=== PATIENT | female | born 1990 | race Caucasian/White ===

== ENCOUNTER 2018-01-18 14:37 | Emergency (ER) | payer MEDICAID ==
--- NOTE | 2018-01-18 14:57 | EDM.PDOC ---
ED HPI GENERAL MEDICAL PROBLEM - General Chief Complaint: Skin Complaint Stated Complaint: INFECTION Time Seen by Provider: 01/18/18 14:52 Source of Information: Reports: Patient History Limitations: Reports: No Limitations - History of Present Illness INITIAL COMMENTS - FREE TEXT/NARRATIVE: HISTORY AND PHYSICAL: []27-year-old female presenting with right breast pain and infection History of Present Illness: []Pain has been present infection for the last 2 weeks she rates her pain as a 10 on admission Review of Systems: As per history of present illness and below otherwise all systems reviewed and negative. Past medical history: As per history of present illness and as reviewed below otherwise noncontributory. Surgical history: As per history of present illness and as reviewed below otherwise noncontributory. Social history: No reported history of drug or alcohol abuse. Family history: As per history of present illness and as reviewed below otherwise noncontributory. Physical exam: Alert female answering questions appropriately in full sentences without any shortness of breath. She is nontoxic in appearance HEENT: Atraumatic, normocehpalic, pupils reactive, negative for conjunctival pallor or scleral icterus, mucous membranes moist, throat clear, neck supple, nontender, trachea midline. Lungs: Clear to auscultation, breath sounds equal bilaterally, chest non tender. Right breast has nipple ring in there is erythema surrounding the breast there is firmness and heat radiating from mid nipple to immediately 2 fingerbreadths Heart: S1S2, regular, negative for clicks, rubs, or JVD. Abdomen: Soft, nondistended, nontender. Negative for masses or hepatossplenmegaly. Negative for costovertebral tenderness. Pelvis: Stable nontender. Genitourinary: Deferred. Rectal: Deferred Extremities: Atraumatic, negative for cords or calf pain. Neurovascular unremarkable. Neuro: Awake, alert, oriented. Cranial nerves II through XII unremarkable. Cerebellum unremarkable. Motor and sensory unremarkable throughout. Exam nonfocal. Diagnostics: [] Therapeutics: []Rocephin 1 g IM hydrocodone Impression: []Mastitis versus cellulitis -abscess Plan: []Discharge home Take out the nipple ring Follow-up with your primary care provider Return to the emergency room should symptoms worsen fever medications not working Keflex 500 mg 3 times a day 7 days Moist heat to this area 3 times a day 10 minutes Definitive disposition and diagnosis as appropriate pending reevaluation and review of above. 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 ED EXAM, SKIN/RASH Exam: See Below (See dictation) Course - Vital Signs Last Recorded V/S: Last Vital Signs Temp 36.6 C 01/18/18 14:49 Pulse 94 01/18/18 14:49 Resp 18 01/18/18 14:49 BP 102/56 L 01/18/18 14:49 Pulse Ox 98 01/18/18 14:49 - Orders/Labs/Meds Orders: Active Orders 24 hr Category Date Time Status Communication Order [RC] STAT Care 01/18/18 14:57 Active Meds: Medications Discontinued Medications Generic Name Dose Route Start Last Admin Trade Name Joaquín PRN Reason Stop Dose Admin Hydrocodone Bitart/Acetaminophen 1 tab 01/18/18 15:05 01/18/18 15:13 [place] 325-10 Mg PO 01/18/18 15:06 1 tab ONETIME ONE Administration Ceftriaxone Sodium 1,000 mg/ 4 mls @ 4 mls/sec 01/18/18 15:06 01/18/18 15:14 Lidocaine HCl IM 01/18/18 15:07 4 mls/sec ONETIME ONE Administration Departure - Departure Time of Disposition: 14:59 Disposition: Home, Self-Care 01 Condition: Good Clinical Impression: Cellulitis Qualifiers: Site of cellulitis: other site Qualified Code(s): L03.818 - Cellulitis of other sites - Discharge Information Prescriptions: Cephalexin [Keflex] 500 mg PO Q8H #21 cap Instructions: Cellulitis, Adult Referrals: PCP,None [Primary Care Provider] - Forms: ED Department Discharge Additional Instructions: The following information is given to patients seen in the emergency department who are being discharged to home. This information is to outline your options for follow-up care. We provide all patients seen in our emergency department with a follow-up referral. The need for follow-up, as well as the timing and circumstances, are variable depending upon the specifics of your emergency department visit. If you don't have a primary care physician on staff, we will provide you with a referral. We always advise you to contact your personal physician following an emergency department visit to inform them of the circumstance of the visit and for follow-up with them and/or the need for any referrals to a consulting specialist. The emergency department will also refer you to a specialist when appropriate. This referral assures that you have the opportunity for followup care with a specialist. All of these measure are taken in an effort to provide you with optimal care, which includes your followup. Under all circumstances we always encourage you to contact your private physician who remains a resource for coordinating your care. When calling for followup care, please make the office aware that this follow-up is from your recent emergency room visit. If for any reason you are refused follow-up, please contact the [facility] emergency department at and asked to speak to the emergency department charge nurse. Discharge home Take out the nipple ring Follow-up with your primary care provider Return to the emergency room should symptoms worsen fever medications not working Keflex 500 mg 3 times a day 7 days Moist heat to this area 3 times a day 10 minutes - My Orders Last 24 Hours: My Active Orders 01/18/18 14:57 Communication Order [RC] STAT - Assessment/Plan Last 24 Hours: My Active Orders 01/18/18 14:57 Communication Order [RC] STAT
[2018-01-18] MEDS ORDERED: Acetaminophen/HYDROcodone 325-10 MG Tab PO ONE (15:05)
[2018-01-18] MEDS ORDERED: cefTRIAXone 1,000 MG in Lidocaine 1% 4 ML IM ONE (15:06)
[2018-01-18 17:46] VITALS: BP 104/69
== END 2018-01-18 15:45 | disposition home or self-care (01) ==
LOC: MW.ED 14:37
DX: N61.0 Mastitis without abscess (principal); Z88.1 Allergy status to other antibiotic agents; Z88.0 Allergy status to penicillin
CPT/HCPCS: 96372; 99283; A9270; J0696; J2001

== ENCOUNTER 2018-01-19 21:44 | Observation (INO) | payer MEDICAID ==
--- NOTE | 2018-01-19 22:26 | EDM.PDOC ---
ED HPI GENERAL MEDICAL PROBLEM - General Chief Complaint: Skin Complaint Stated Complaint: CELLULITIS IN BREAST Time Seen by Provider: 01/19/18 21:57 Source of Information: Reports: Patient - History of Present Illness INITIAL COMMENTS - FREE TEXT/NARRATIVE: HISTORY AND PHYSICAL: History of present illness: 27-year-old female presenting the emergency department with chief complaint of right breast pain and swelling. Patient was seen here on 01/18 with similar complaint and discharged with a prescription of Keflex. She returns today stating that the pain has increased as well as the swelling and redness. She does also report associated fever maximum temp 101 today as well as nausea without vomiting. Patient reported that she had a nipple piercing in the breast and initially when she took the piercing out before being seen on 01/18 there was some drainage from the right breast. Currently states that her pain is 8 out of 10 and primary located to the right breast. She is allergic to amoxicillin and penicillins. Currently denies any chest pain, palpitations, shortness of breath, syncopal episodes, or focal neurologic deficits. Otherwise patient takes no other medications on a daily basis. Review of systems: As per history of present illness and below otherwise all systems reviewed and negative. Past medical history: As per history of present illness and as reviewed below otherwise noncontributory. Surgical history: As per history of present illness and as reviewed below otherwise noncontributory. Social history: No reported history of drug or alcohol abuse. Family history: As per history of present illness and as reviewed below otherwise noncontributory. Physical exam: HEENT: Atraumatic, normocephalic, pupils reactive, negative for conjunctival pallor or scleral icterus, mucous membranes moist, throat clear, neck supple, nontender, trachea midline. Lungs: Clear to auscultation, breath sounds equal bilaterally, chest nontender. Heart: S1S2, regular, negative for clicks, rubs, or JVD. Abdomen: Soft, nondistended, nontender. Negative for masses or hepatosplenomegaly. Negative for costovertebral tenderness. Pelvis: Stable nontender. Genitourinary: Deferred. Rectal: Deferred. Extremities: Atraumatic, negative for cords or calf pain. Neurovascular unremarkable. Neuro: Awake, alert, oriented. Cranial nerves II through XII unremarkable. Cerebellum unremarkable. Motor and sensory unremarkable throughout. Exam nonfocal. Breast exam: There is significant swelling, induration, to the right breast encompassing the entire breast and nipple. I was unable to exude any material from the breast. Area erythema was demarcated with a surgical pen and dated with time Diagnostics: CBC, CMP, lactate, blood culture 2 Therapeutics: 2 L normal saline IV, 1 g vancomycin IV 1, 1 mg Dilaudid IV 2, 50 mg Benadryl IV 1 Impression: Breast abscess with cellulitis Sepsis secondary to cellulitis Plan: CBC revealed a white count of 19k and the patient was initially found to be tachycardic with an elevated lactate of 2.2. Blood cultures 2 were obtained and patient was started on vancomycin 1 g IV. She was also given 2 L of normal saline while in the emergency department and a total of 2 mg of Dilaudid IV for pain. Impression, sepsis secondary to breast abscess/cellulitis of right breast. Patient did have some erythema as well as itching when vancomycin was initially started. I did give her 50 mg of IV Benadryl which relieved her symptoms. After vancomycin given reinspection showed improving erythema of the right breast. Dr. Moore, hospitalist, was advised of the patient and he accepted her for admission for observation cellulitis with abscess right breast. 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: Musculoskeletal History: Reports: None Neurological History: Reports: None Psychiatric History: Reports: Bipolar Endocrine/Metabolic History: Reports: None Hematologic History: Reports: None Oncologic (Cancer) History: Reports: None Dermatologic History: Reports: None - Infectious Disease History Infectious Disease History: Reports: None - Past Surgical History Head Surgeries/Procedures: Reports: None HEENT Surgical History: Reports: Tonsillectomy Social & Family History - Family History Family Medical History: Noncontributory - Tobacco Use Smoking Status *Q: Current Every Day Smoker Years of Tobacco use: 10 Packs/Tins Daily: 0.5 - Caffeine Use Caffeine Use: Reports: Coffee - Recreational Drug Use Recreational Drug Use: No ED ROS GENERAL - Review of Systems Review Of Systems: ROS reveals no pertinent complaints other than HPI. ED EXAM, SKIN/RASH Exam: See Below Course - Vital Signs Last Recorded V/S: Last Vital Signs Temp 99 F 01/20/18 00:16 Pulse 74 01/20/18 00:16 Resp 18 01/19/18 22:01 BP 117/74 01/20/18 00:16 Pulse Ox 100 01/20/18 00:16 - Orders/Labs/Meds Orders: Active Orders 24 hr Category Date Time Status CULTURE BLOOD [BC] Stat Lab 01/19/18 22:40 Received CULTURE BLOOD [BC] Stat Lab 01/19/18 22:51 Received Sodium Chloride 0.9% [Normal Saline] 1,000 ml Med 01/20/18 00:16 Active IV STAT Blood Culture x2 Reflex Set [OM.PC] Stat Oth 01/19/18 22:32 Ordered Medication Orders Sodium Chloride (Normal Saline) 1,000 mls @ 999 mls/hr IV STAT ONE Stop: 01/20/18 01:16 Last Admin: 01/20/18 00:23 Dose: 999 mls/hr Labs: Laboratory Tests 01/19/18 01/19/18 01/19/18 Range/Units 22:40 22:40 22:40 WBC 19.21 H (4.0-11.0) K/uL RBC 4.48 (4.30-5.90) M/uL Hgb 14.5 (12.0-16.0) g/dL Hct 41.7 (36.0-46.0) % MCV 93.1 (80.0-98.0) fL MCH 32.4 H (27.0-32.0) pg MCHC 34.8 (31.0-37.0) g/dL RDW Std Deviation 41.8 (28.0-62.0) fl RDW Coeff of Millicent 12 (11.0-15.0) % Plt Count 289 (150-400) K/uL MPV 10.20 (7.40-12.00) fL Neut % (Auto) 86.6 H (48.0-80.0) % Lymph % (Auto) 8.3 L (16.0-40.0) % Stephens % (Auto) 4.9 (0.0-15.0) % Eos % (Auto) 0.1 (0.0-7.0) % Baso % (Auto) 0.1 (0.0-1.5) % Neut # (Auto) 16.6 H (1.4-5.7) K/uL Lymph # (Auto) 1.6 (0.6-2.4) K/uL Stephens # (Auto) 1.0 H (0.0-0.8) K/uL Eos # (Auto) 0.0 (0.0-0.7) K/uL Baso # (Auto) 0.0 (0.0-0.1) K/uL Nucleated RBC % 0.0 /100WBC Nucleated RBCs # 0 K/uL Lactate 2.2 H (0.20-2.00) mmol/L Sodium 134 L (136-145) mmol/L Potassium 4.2 (3.5-5.1) mmol/L Chloride 96 L (98-107) mmol/L Carbon Dioxide 26.6 (21.0-32.0) mmol/L BUN 12 (7.0-18.0) mg/dL Creatinine 1.0 (0.6-1.0) mg/dL Est Cr Clr Drug Dosing 76.04 mL/min Estimated GFR (MDRD) > 60.0 ml/min Glucose 115 H (74-106) mg/dL Calcium 9.6 (8.5-10.1) mg/dL Total Bilirubin 0.5 (0.2-1.0) mg/dL AST 13 L (15-37) IU/L ALT 17 (14-63) IU/L Alkaline Phosphatase 98 (46-116) U/L Total Protein 9.5 H (6.4-8.2) g/dL Albumin 4.5 (3.4-5.0) g/dL Globulin 5.0 H (2.0-3.5) g/dL Albumin/Globulin Ratio 0.9 L (1.3-2.8) Meds: Medications Generic Name Dose Route Start Last Admin Trade Name Freq PRN Reason Stop Dose Admin Sodium Chloride 1,000 mls @ 999 mls/hr 01/20/18 00:16 01/20/18 00:23 Normal Saline IV 01/20/18 01:16 999 mls/hr STAT ONE Administration Discontinued Medications Generic Name Dose Route Start Last Admin Trade Name Joaquín PRN Reason Stop Dose Admin Diphenhydramine HCl 50 mg 01/19/18 23:48 01/19/18 23:52 Benadryl IVPUSH 01/19/18 23:49 50 mg ONETIME ONE Administration Hydromorphone HCl 1 mg 01/19/18 22:34 01/19/18 22:52 Dilaudid IM 01/19/18 22:35 Not Given ONETIME ONE Hydromorphone HCl 0.5 mg 01/19/18 22:49 01/19/18 22:52 Dilaudid IVPUSH 01/19/18 22:50 Not Given ONETIME ONE Hydromorphone HCl 1 mg 01/19/18 22:51 01/19/18 22:57 Dilaudid IVPUSH 01/19/18 22:52 1 mg ONETIME ONE Administration Hydromorphone HCl 1 mg 01/20/18 00:15 01/20/18 00:27 Dilaudid IVPUSH 01/20/18 00:16 Not Given ONETIME ONE Hydromorphone HCl 1 mg 01/20/18 00:20 01/20/18 00:26 Dilaudid IVPUSH 01/20/18 00:21 1 mg ONETIME ONE Administration Sodium Chloride 1,000 mls @ 999 mls/hr 01/19/18 22:34 01/19/18 22:57 Normal Saline IV 01/19/18 23:34 999 mls/hr STAT ONE Administration Vancomycin HCl 1 gm/ Sodium 250 mls @ 250 mls/hr 01/19/18 22:58 01/19/18 23: 06 Chloride IV 01/19/18 23:57 250 mls/hr ONETIME ONE Administration Departure - Departure Time of Disposition: 00:41 Disposition: Admitted As Inpatient 66 Condition: Fair Clinical Impression: Sepsis due to cellulitis, Breast abscess of female - Discharge Information Referrals: PCP,None [Primary Care Provider] - Forms: ED Department Discharge - My Orders Last 24 Hours: My Active Orders 01/19/18 22:32 Blood Culture x2 Reflex Set [OM.PC] Stat 01/19/18 22:40 CULTURE BLOOD [BC] Stat 01/19/18 22:51 CULTURE BLOOD [BC] Stat 01/20/18 00:16 Sodium Chloride 0.9% [Normal Saline] 1,000 ml IV STAT - Assessment/Plan Last 24 Hours: My Active Orders 01/19/18 22:32 Blood Culture x2 Reflex Set [OM.PC] Stat 01/19/18 22:40 CULTURE BLOOD [BC] Stat 01/19/18 22:51 CULTURE BLOOD [BC] Stat 01/20/18 00:16 Sodium Chloride 0.9% [Normal Saline] 1,000 ml IV STAT
[2018-01-19] MEDS ORDERED: Sodium Chloride 0.9% 1,000 ML IV ONE (22:34)
[2018-01-19] MEDS ORDERED: HYDROmorphone 2 MG/ML SDV IM ONE (22:34)
[2018-01-19] MEDS ORDERED: HYDROmorphone 1 MG/ML Syringe IVPUSH ONE ×2 (22:49→22:51)
[2018-01-19 23:20] LABS: CHLORIDE,CL 96 mmol/L (98-107); SODIUM,NA 134 mmol/L (136-145)
[2018-01-19] MEDS ORDERED: diphenhydrAMINE 50 MG/ML SDV IVPUSH ONE (23:48)
[2018-01-20] MEDS ORDERED: HYDROmorphone 2 MG/ML Syringe IVPUSH ONE (00:15)
[2018-01-20] MEDS ORDERED: Sodium Chloride 0.9% 1,000 ML IV ONE (00:16)
[2018-01-20] MEDS ORDERED: HYDROmorphone 1 MG/ML Syringe IVPUSH ONE (00:20)
[2018-01-20] MEDS ORDERED: HYDROmorphone 4 MG/ML Syringe IVPUSH PRN (01:21)
[2018-01-20] MEDS ORDERED: Acetaminophen 325 MG Tab PO PRN (01:22)
[2018-01-20] MEDS: Sodium Chloride 0.9% 1,000 ML IV SCH ×3 (01:31→16:37)
[2018-01-20] MEDS: HYDROmorphone 1 MG/ML Syringe IV PRN ×7 (01:45→23:24)
[2018-01-20 05:13] LABS: CHLORIDE,CL 102 mmol/L (98-107); SODIUM,NA 136 mmol/L (136-145)
[2018-01-20] MEDS ORDERED: Ondansetron 4 MG/2 ML SDV IVPUSH PRN (08:07)
--- NOTE | 2018-01-20 08:21 | PCM.HP ---
Addendum entered and electronically signed by Jennifer Maurice NP 01/20/18 10:27 : 3.8 x 3 cm abscess noted on ultrasound to right upper inner breast. Dr Mckeon aware and will speak to patient regarding drainage options. Original Note: H&P History of Present Illness - General Date of Service: 01/20/18 Admit Problem/Dx: Admission Diagnosis/Problem Admission Diagnosis/Problem Sepsis, cellulitis R breast Source of Information: Patient History Limitations: Reports: No Limitations - History of Present Illness Initial Comments - Free Text/Narative: This 27 year old female with no significant pmh presented to the ED last night with complaints of warm, red painful R breast with associated nausea and fevers. She reports approximately 1 week ago she noticed some redness on her right breast, she removed her nipple ring and cleaned it and noticed some drainage from the hole when she did this. She replaced the ring, but with a smaller size, but the redness and pain continued to worsen. She has since removed the piercing from R nipple. She came to the ED on 01/18 and was treated with IM Rocephin and sent home with Keflex, she reports it only worsened and became more reddened, hard and painful. She had a temp at home of 101. She came back to the ED last night for further evaluation. She reports having her nipple pierced in June and everything was good with it until now. She reports she cleans is regularly and has never had anything like this before. She denies injecting anything into her breast, no injury or trauma to he right breast. She denies abdominal pain, shortness of breath or dysuria. She reports tobacco use, 4 cigarettes a day, rare alcohol use. She denies recreational drug use. She denies any surgeries other than tonsillectomy as a young child. In the ED significant leukocytosis noted, 19,210, Lactate 2.2 BMP otherwise WNL. She was noted to be tachycardic and febrile in the ED as well. She was treated with IVF bolus and Vancomycin. She was admitted observation for R breast cellulitis with sepsis and possible abscess. right breast Pain Score (Numeric/FACES): 7 - Related Data Allergies/Adverse Reactions: Allergies Allergy/AdvReac Type Severity Reaction Status Date / Time amoxicillin Allergy Other Verified 01/19/18 22:01 Penicillins Allergy Other Verified 01/19/18 22:01 Home Medications: Home Meds Cephalexin [Keflex] 500 mg PO Q8H #21 cap 01/18/18 [Rx] Past Medical History HEENT History: Reports: None Cardiovascular History: Reports: Other (See Below). Denies: Afib, Hypertension , [place] Other Cardiovascular History: prolonged QT interval Respiratory History: Reports: None. Denies: Asthma, COPD Gastrointestinal History: Reports: None. Denies: GERD, GI Bleed Genitourinary History: Reports: None [employer]ER History: Reports: Musculoskeletal History: Reports: None Neurological History: Reports: None. Denies: CVA, TIA Psychiatric History: Reports: Bipolar Endocrine/Metabolic History: Reports: None. Denies: Diabetes, Type II Hematologic History: Reports: None Oncologic (Cancer) History: Reports: None Dermatologic History: Reports: None - Infectious Disease History Infectious Disease History: Reports: None - Past Surgical History Head Surgeries/Procedures: Reports: None HEENT Surgical History: Reports: Tonsillectomy Social & Family History - Family History Family Medical History: Noncontributory - Tobacco Use Smoking Status *Q: Current Every Day Smoker Years of Tobacco use: 10 Packs/Tins Daily: 0.2 Used Tobacco, but Quit: No Second Hand Smoke Exposure: Yes - Caffeine Use Caffeine Use: Reports: Coffee, Energy Drinks - Alcohol Use Days Per Week of Alcohol Use: 1 Number of Drinks Per Day: 1 Total Drinks Per Week: 1 Alcohol Use Frequency: Rarely, Socially - Recreational Drug Use Recreational Drug Use: No Drug Use in Last 12 Months: No - Living Situation & Occupation Living situation: Reports: Single Occupation: Employed H&P Review of Systems - Review of Systems: Review Of Systems: See Below General: Reports: Fever, Chills, Malaise HEENT: Reports: No Symptoms. Denies: Hearing Changes, Sinus Congestion, Sore Throat, Visual Changes Pulmonary: Reports: No Symptoms. Denies: Shortness of Breath, Cough, Sputum Cardiovascular: Reports: No Symptoms. Denies: Chest Pain, Edema Gastrointestinal: Reports: Nausea. Denies: Abdominal Pain, Black Stool, Bloody Stool, Vomiting Genitourinary: Reports: No Symptoms. Denies: Dysuria, Frequency, Burning, Pain Musculoskeletal: Reports: No Symptoms Skin: Reports: Erythema (R breast) Neurological: Reports: No Symptoms Hematologic/Lymphatic: Reports: No Symptoms Immunologic: Reports: No Symptoms Exam - Exam Exam: See Below - Vital Signs Vital Signs: Last Vital Signs Temp 99.2 F 01/20/18 07:44 Pulse 67 01/20/18 07:44 Resp 14 01/20/18 07:44 BP 91/49 L 01/20/18 07:44 Pulse Ox 98 01/20/18 04:00 Weight: 61.825 kg - Exam General: Alert, Oriented, Cooperative HEENT: Conjunctiva Clear, Nares Patent, Posterior Pharynx Clear Neck: Supple, Trachea Midline. No: Lymphadenopathy Lungs: Clear to Auscultation, Normal Respiratory Effort Cardiovascular: Regular Rate, Regular Rhythm, Normal S1, Normal S2. No: Systolic Murmur GI/Abdominal Exam: Normal Bowel Sounds, Soft, Non-Tender Extremities: Normal Inspection, Normal Range of Motion, Non-Tender Skin: Other (Erythema, induration noted to 3 oclock position of R breast. No skin dimpling noted. Induration is approximately 2-3 in and is from 12 o'clock position to 6 o'clock positin and exquistely tender to palpation. No fluctuance noted. Small area noted just medially to R nipple, with possible purulence just beneath skin layer. No obviously drainage noted. No lymphadenopathy to cervical or axilla. ) Neuro Extensive - Mental Status: Alert, Oriented x3 Neuro Extensive - Motor, Sensory, Reflexes: CN II-XII Intact Psychiatric: Alert, Normal Affect, Normal Mood - Patient Data Lab Results Last 24 hrs: Laboratory Results - last 24 hr 01/19/18 01/19/18 01/19/18 Range/Units 22:40 22:40 22:40 WBC 19.21 H (4.0-11.0) K/uL RBC 4.48 (4.30-5.90) M/uL Hgb 14.5 (12.0-16.0) g/dL Hct 41.7 (36.0-46.0) % MCV 93.1 (80.0-98.0) fL MCH 32.4 H (27.0-32.0) pg MCHC 34.8 (31.0-37.0) g/dL RDW Std Deviation 41.8 (28.0-62.0) fl RDW Coeff of Millicent 12 (11.0-15.0) % Plt Count 289 (150-400) K/uL MPV 10.20 (7.40-12.00) fL Neut % (Auto) 86.6 H (48.0-80.0) % Lymph % (Auto) 8.3 L (16.0-40.0) % [place] % (Auto) 4.9 (0.0-15.0) % Eos % (Auto) 0.1 (0.0-7.0) % Baso % (Auto) 0.1 (0.0-1.5) % Neut # (Auto) 16.6 H (1.4-5.7) K/uL Lymph # (Auto) 1.6 (0.6-2.4) K/uL [place] # (Auto) 1.0 H (0.0-0.8) K/uL Eos # (Auto) 0.0 (0.0-0.7) K/uL Baso # (Auto) 0.0 (0.0-0.1) K/uL Nucleated RBC % 0.0 /100WBC Nucleated RBCs # 0 K/uL Lactate 2.2 H (0.20-2.00) mmol/L Sodium 134 L (136-145) mmol/L Potassium 4.2 (3.5-5.1) mmol/L Chloride 96 L (98-107) mmol/L Carbon Dioxide 26.6 (21.0-32.0) mmol/L BUN 12 (7.0-18.0) mg/dL Creatinine 1.0 (0.6-1.0) mg/dL Est Cr Clr Drug Dosing 76.04 mL/min Estimated GFR (MDRD) > 60.0 ml/min Glucose 115 H (74-106) mg/dL Calcium 9.6 (8.5-10.1) mg/dL Total Bilirubin 0.5 (0.2-1.0) mg/dL AST 13 L (15-37) IU/L ALT 17 (14-63) IU/L Alkaline Phosphatase 98 (46-116) U/L Total Protein 9.5 H (6.4-8.2) g/dL Albumin 4.5 (3.4-5.0) g/dL Globulin 5.0 H (2.0-3.5) g/dL Albumin/Globulin Ratio 0.9 L (1.3-2.8) 01/20/18 01/20/18 01/20/18 Range/Units 04:49 04:49 04:49 WBC 12.71 H (4.0-11.0) K/uL RBC 3.96 L (4.30-5.90) M/uL Hgb 12.7 (12.0-16.0) g/dL Hct 37.2 (36.0-46.0) % MCV 93.9 (80.0-98.0) fL MCH 32.1 H (27.0-32.0) pg MCHC 34.1 (31.0-37.0) g/dL RDW Std Deviation 42.4 (28.0-62.0) fl RDW Coeff of Millicent 12 (11.0-15.0) % Plt Count 253 (150-400) K/uL MPV 10.10 (7.40-12.00) fL Neut % (Auto) 78.8 (48.0-80.0) % Lymph % (Auto) 14.6 L (16.0-40.0) % [place] % (Auto) 5.7 (0.0-15.0) % Eos % (Auto) 0.8 (0.0-7.0) % Baso % (Auto) 0.1 (0.0-1.5) % Neut # (Auto) 10.0 H (1.4-5.7) K/uL Lymph # (Auto) 1.9 (0.6-2.4) K/uL [place] # (Auto) 0.7 (0.0-0.8) K/uL Eos # (Auto) 0.1 (0.0-0.7) K/uL Baso # (Auto) 0.0 (0.0-0.1) K/uL Nucleated RBC % 0.0 /100WBC Nucleated RBCs # 0 K/uL Lactate 0.5 (0.20-2.00) mmol/L Sodium 136 (136-145) mmol/L Potassium 3.4 L (3.5-5.1) mmol/L Chloride 102 (98-107) mmol/L Carbon Dioxide 27.6 (21.0-32.0) mmol/L BUN 8 (7.0-18.0) mg/dL Creatinine 0.8 (0.6-1.0) mg/dL Est Cr Clr Drug Dosing 98.88 mL/min Estimated GFR (MDRD) > 60.0 ml/min Glucose 92 (74-106) mg/dL Calcium 8.3 L (8.5-10.1) mg/dL Total Bilirubin (0.2-1.0) mg/dL AST (15-37) IU/L ALT (14-63) IU/L Alkaline Phosphatase (46-116) U/L Total Protein (6.4-8.2) g/dL Albumin (3.4-5.0) g/dL Globulin (2.0-3.5) g/dL Albumin/Globulin Ratio (1.3-2.8) Result Diagrams: 01/20/18 04:49 01/20/18 04:49 *Q Meaningful Use (ADM) - VTE Risk Assess *Q Each Risk Factor Represents 1 Point: None Total Score 1 Point Risk Factors: 0 Each Risk Factor Represents 2 Points: None Total Score 2 Point Risk Factors: 0 Each Risk Factor Represents 3 Points: None Total Score 3 Point Risk Factors: 0 Each Risk Factor Represents 5 Points: None Total Score 5 Point Risk Factors: 0 Venous Thromboembolism Risk Factor Score *Q: 0 - Problem List (1) Sepsis due to cellulitis SNOMED Code(s): 89888511 ICD Code: L03.90 - CELLULITIS, UNSPECIFIED; A41.9 - SEPSIS, UNSPECIFIED ORGANISM Status: Acute Current Visit: Yes (2) Cellulitis SNOMED Code(s): 339253136 ICD Code: L03.90 - CELLULITIS, UNSPECIFIED Status: Acute Current Visit: No Qualifiers: Site of cellulitis: other site Qualified Code(s): L03.818 - Cellulitis of other sites (3) Breast abscess of female SNOMED Code(s): 09526856, 831346624 ICD Code: N61.1 - ABSCESS OF THE BREAST AND NIPPLE Status: Suspected Current Visit: Yes Problem List Initiated/Reviewed/Updated: Yes Orders Last 24hrs: Active Orders 24 hr Category Date Time Status Admission Status [Patient Status] [ADT] Routine ADT 01/20/18 01:24 Active Notify Provider Consults [RC] ASDIRECTED Care 01/20/18 08:02 Ordered Oxygen Therapy [RC] PRN Care 01/20/18 08:08 Ordered Up ad Ashley [RC] ASDIRECTED Care 01/20/18 08:07 Ordered VTE/DVT Education [RC] PER UNIT ROUTINE Care 01/20/18 08:08 Ordered Vital Signs [RC] Q4H Care 01/20/18 08:08 Ordered Consult to Physician [CONS] Routine Cons 01/20/18 08:00 Ordered Regular Diet [DIET] Diet 01/20/18 Breakfast Active Breast Complete Rt [US] Urgent Exams 01/20/18 07:57 Ordered BASIC METABOLIC PANEL,BMP [CHEM] AM Lab 01/21/18 05:11 Ordered BASIC METABOLIC PANEL,BMP [CHEM] AM Lab 01/22/18 05:11 Ordered BASIC METABOLIC PANEL,BMP [CHEM] AM Lab 01/23/18 05:11 Ordered CBC WITH AUTO DIFF [HEME] AM Lab 01/21/18 05:11 Ordered CBC WITH AUTO DIFF [HEME] AM Lab 01/22/18 05:11 Ordered CBC WITH AUTO DIFF [HEME] AM Lab 01/23/18 05:11 Ordered CULTURE BLOOD [BC] Stat Lab 01/19/18 22:40 Received CULTURE BLOOD [BC] Stat Lab 01/19/18 22:51 Received VANCOMYCIN TROUGH [CHEM] Timed Lab 01/21/18 06:00 Ordered Acetaminophen [Tylenol] Med 01/20/18 01:22 Active 650 mg PO Q6H PRN HYDROmorphone [Dilaudid] Med 01/20/18 01:45 Active 1 mg IV Q3H PRN Ondansetron [Zofran] Med 01/20/18 08:07 Ordered 4 mg IVPUSH Q4H PRN Sodium Chloride 0.9% [Normal Saline] 1,000 ml Med 01/20/18 01:30 Active IV ASDIRECTED Vancomycin Pharmacy to Dose [Pharmacy to Dose - Med 01/20/18 01:30 Active Vancomycin] 1 dose .XX ASDIRECTED Vancomycin [Vancocin] 1 gm Med 01/20/18 07:00 Active Sodium Chloride 0.9% [Normal Saline] 250 ml IV Q8H diphenhydrAMINE [Benadryl] Med 01/20/18 02:37 Active 50 mg IVPUSH Q6H PRN oxyCODONE Med 01/20/18 08:05 Ordered 5 mg PO Q4H PRN Blood Culture x2 Reflex Set [OM.PC] Stat Oth 07/01/18 22:32 Ordered Resuscitation Status Routine Resus Stat 01/20/18 08:07 Ordered Medication Orders Acetaminophen (Tylenol) 650 mg PO Q6H PRN PRN Reason: Pain Diphenhydramine HCl (Benadryl) 50 mg IVPUSH Q6H PRN PRN Reason: Itching Hydromorphone HCl (Dilaudid) 1 mg IV Q3H PRN PRN Reason: Pain Last Admin: 01/20/18 07:52 Dose: 1 mg Admin: 01/20/18 04:53 Dose: 1 mg Admin: 01/20/18 01:45 Dose: 1 mg Sodium Chloride (Normal Saline) 1,000 mls @ 125 mls/hr IV ASDIRECTED [facility] Last Admin: 01/20/18 01:31 Dose: 125 mls/hr Vancomycin HCl 1 gm/ Sodium (Chloride) 250 mls @ 166 mls/hr IV Q8H [facility] Last Admin: 01/20/18 06:12 Dose: 166 mls/hr Ondansetron HCl (Zofran) 4 mg IVPUSH Q4H PRN PRN Reason: Nausea Oxycodone HCl (Oxycodone) 5 mg PO Q4H PRN PRN Reason: Pain Vancomycin HCl (Pharmacy To Dose - Vancomycin) 1 dose .XX ASDIRECTED [facility] Assessment/Plan Comment:: This 27 year old female admitted with sepsis secondary to R breast cellulitis and possible abscess. 1. Sepsis: Tachycardia improved with IVF resuscitation. Lactate normalized. Will continue to monitor. BC pending. Continue IVFs, NS 125 for now. 2. R breast cellulitis with possible abscess: Will obtain US this morning to evaluate for abscess. Consult Dr Mckeon, general surgery, to evaluate for possible I&D. Continue Vancomycin. Leukcytosis improved to 12,000 this morning. Temps 99.0. Dilaudid and Oxycodone for pain PRN. VTE prophylaxis: SCDs and ambulation Dispo: 1-2 days pending improvement and surgical consultation.
[2018-01-20] MEDS: oxyCODONE 5 MG Tab PO PRN ×3 (08:49→21:07)
--- NOTE | 2018-01-20 09:28 | US ---
EXAMINATION: Right breast ultrasound HISTORY: Cellulitis COMPARISON: None TECHNIQUE: Grayscale and color Doppler imaging obtained of the right breast. FINDINGS: Within the upper inner right breast there is a 3.8 x 3 cm hypoechoic irregular collection n oted. Internal contents are heterogeneous. There is increased color Doppler flow along the periphery without definitive internal color Doppler flow. This is most consistent with an abscess. IMPRESSION: 1. Probable 3.8 x 3 cm right breast abscess measuring 3.8 x 3 cm.
--- NOTE | 2018-01-20 12:04 | PCM.CONS ---
H&P History of Present Illness - General Date of Service: 01/20/18 Admit Problem/Dx: Admission Diagnosis/Problem Admission Diagnosis/Problem Sepsis, cellulitis R breast Source of Information: Patient History Limitations: Reports: No Limitations - History of Present Illness Initial Comments - Free Text/Narative: Patient is a 27 year old female who presented with right breast pain and cellulitis. She was seen in the ER and given a shot of rocephin and discharged home on oral antibiotics. Her pain, erythema and swelling worsened so she represented to the ED. She was found to have a WBC of 19K. She was admitted to the medicine service and started on IV vancomycin. Her WBC this morning is 12K. She has a small area of fluctuance at the medial border of the right areola. An US was done that showed 3 x 3.8 cm abscess in the right upper inner quadrant under this area. She has a nipple ring that was placed in June and smokes. right breast Pain Score (Numeric/FACES): 7 - Related Data Allergies/Adverse Reactions: Allergies Allergy/AdvReac Type Severity Reaction Status Date / Time amoxicillin Allergy Other Verified 01/19/18 22:01 Penicillins Allergy Other Verified 01/19/18 22:01 Home Medications: Home Meds Cephalexin [Keflex] 500 mg PO Q8H #21 cap 01/18/18 [Rx] Past Medical History HEENT History: Reports: None Cardiovascular History: Reports: Other (See Below). Denies: Afib, Hypertension , [place] Other Cardiovascular History: prolonged QT interval Respiratory History: Reports: None. Denies: Asthma, COPD Gastrointestinal History: Reports: None. Denies: GERD, GI Bleed Genitourinary History: Reports: None [employer] History: Reports: Musculoskeletal History: Reports: None Neurological History: Reports: None. Denies: CVA, TIA Psychiatric History: Reports: Bipolar Endocrine/Metabolic History: Reports: None. Denies: Diabetes, Type II Hematologic History: Reports: None Oncologic (Cancer) History: Reports: None Dermatologic History: Reports: None - Infectious Disease History Infectious Disease History: Reports: None - Past Surgical History Head Surgeries/Procedures: Reports: None HEENT Surgical History: Reports: Tonsillectomy Social & Family History - Family History Family Medical History: Noncontributory - Tobacco Use Smoking Status *Q: Current Every Day Smoker Years of Tobacco use: 10 Packs/Tins Daily: 0.2 Used Tobacco, but Quit: No Second Hand Smoke Exposure: Yes - Caffeine Use Caffeine Use: Reports: Coffee, Energy Drinks - Alcohol Use Days Per Week of Alcohol Use: 1 Number of Drinks Per Day: 1 Total Drinks Per Week: 1 - Recreational Drug Use Recreational Drug Use: No Drug Use in Last 12 Months: No - Living Situation & Occupation Living situation: Reports: Single Occupation: Employed H&P Review of Systems - Review of Systems: Review Of Systems: ROS reveals no pertinent complaints other than HPI. Exam - Exam Exam: See Below - Vital Signs Vital Signs: Last Vital Signs Temp 36.3 C 01/20/18 11:42 Pulse 59 L 01/20/18 11:42 Resp 20 01/20/18 11:42 BP 95/55 L 01/20/18 11:42 Pulse Ox 99 01/20/18 11:42 Weight: 61.825 kg - Exam General: Alert, Oriented HEENT: Conjunctiva Clear, Mucosa Moist & [place], Posterior Pharynx Clear Lungs: Normal Respiratory Effort Cardiovascular: Regular Rate Back Exam: Normal Inspection Extremities: Normal Inspection Skin: Warm, Dry, Intact Skin Alteration Location (Drawings Not To Scale): 1 - Erythematous, tender, swollen right breast, with small area of fluctuance at the 3 oclock position on the areolar border Neuro Extensive - Mental Status: Alert, Oriented x3 - Patient Data Lab Results Last 24 hrs: Laboratory Results - last 24 hr 01/19/18 01/19/18 01/19/18 Range/Units 22:40 22:40 22:40 WBC 19.21 H (4.0-11.0) K/uL RBC 4.48 (4.30-5.90) M/uL Hgb 14.5 (12.0-16.0) g/dL Hct 41.7 (36.0-46.0) % MCV 93.1 (80.0-98.0) fL MCH 32.4 H (27.0-32.0) pg MCHC 34.8 (31.0-37.0) g/dL RDW Std Deviation 41.8 (28.0-62.0) fl RDW Coeff of Millicent 12 (11.0-15.0) % Plt Count 289 (150-400) K/uL MPV 10.20 (7.40-12.00) fL Neut % (Auto) 86.6 H (48.0-80.0) % Lymph % (Auto) 8.3 L (16.0-40.0) % [place] % (Auto) 4.9 (0.0-15.0) % Eos % (Auto) 0.1 (0.0-7.0) % Baso % (Auto) 0.1 (0.0-1.5) % Neut # (Auto) 16.6 H (1.4-5.7) K/uL Lymph # (Auto) 1.6 (0.6-2.4) K/uL [place] # (Auto) 1.0 H (0.0-0.8) K/uL Eos # (Auto) 0.0 (0.0-0.7) K/uL Baso # (Auto) 0.0 (0.0-0.1) K/uL Nucleated RBC % 0.0 /100WBC Nucleated RBCs # 0 K/uL Lactate 2.2 H (0.20-2.00) mmol/L Sodium 134 L (136-145) mmol/L Potassium 4.2 (3.5-5.1) mmol/L Chloride 96 L (98-107) mmol/L Carbon Dioxide 26.6 (21.0-32.0) mmol/L BUN 12 (7.0-18.0) mg/dL Creatinine 1.0 (0.6-1.0) mg/dL Est Cr Clr Drug Dosing 76.04 mL/min Estimated GFR (MDRD) > 60.0 ml/min Glucose 115 H (74-106) mg/dL Calcium 9.6 (8.5-10.1) mg/dL Total Bilirubin 0.5 (0.2-1.0) mg/dL AST 13 L (15-37) IU/L ALT 17 (14-63) IU/L Alkaline Phosphatase 98 (46-116) U/L Total Protein 9.5 H (6.4-8.2) g/dL Albumin 4.5 (3.4-5.0) g/dL Globulin 5.0 H (2.0-3.5) g/dL Albumin/Globulin Ratio 0.9 L (1.3-2.8) 01/20/18 01/20/18 01/20/18 Range/Units 04:49 04:49 04:49 WBC 12.71 H (4.0-11.0) K/uL RBC 3.96 L (4.30-5.90) M/uL Hgb 12.7 (12.0-16.0) g/dL Hct 37.2 (36.0-46.0) % MCV 93.9 (80.0-98.0) fL MCH 32.1 H (27.0-32.0) pg MCHC 34.1 (31.0-37.0) g/dL RDW Std Deviation 42.4 (28.0-62.0) fl RDW Coeff of Millicent 12 (11.0-15.0) % Plt Count 253 (150-400) K/uL MPV 10.10 (7.40-12.00) fL Neut % (Auto) 78.8 (48.0-80.0) % Lymph % (Auto) 14.6 L (16.0-40.0) % [place] % (Auto) 5.7 (0.0-15.0) % Eos % (Auto) 0.8 (0.0-7.0) % Baso % (Auto) 0.1 (0.0-1.5) % Neut # (Auto) 10.0 H (1.4-5.7) K/uL Lymph # (Auto) 1.9 (0.6-2.4) K/uL [place] # (Auto) 0.7 (0.0-0.8) K/uL Eos # (Auto) 0.1 (0.0-0.7) K/uL Baso # (Auto) 0.0 (0.0-0.1) K/uL Nucleated RBC % 0.0 /100WBC Nucleated RBCs # 0 K/uL Lactate 0.5 (0.20-2.00) mmol/L Sodium 136 (136-145) mmol/L Potassium 3.4 L (3.5-5.1) mmol/L Chloride 102 (98-107) mmol/L Carbon Dioxide 27.6 (21.0-32.0) mmol/L BUN 8 (7.0-18.0) mg/dL Creatinine 0.8 (0.6-1.0) mg/dL Est Cr Clr Drug Dosing 98.88 mL/min Estimated GFR (MDRD) > 60.0 ml/min Glucose 92 (74-106) mg/dL Calcium 8.3 L (8.5-10.1) mg/dL Total Bilirubin (0.2-1.0) mg/dL AST (15-37) IU/L ALT (14-63) IU/L Alkaline Phosphatase (46-116) U/L Total Protein (6.4-8.2) g/dL Albumin (3.4-5.0) g/dL Globulin (2.0-3.5) g/dL Albumin/Globulin Ratio (1.3-2.8) Result Diagrams: 01/20/18 04:49 01/20/18 04:49 Consult PN Assessment/Plan Procedures: Procedures ASSAY OF TROPONIN QUANT (06/16/16) CHEST X-RAY 2VW FRONTAL&LATL (06/16/16) COMPLETE CBC W/AUTO DIFF WBC (06/16/16) COMPREHEN METABOLIC PANEL (06/16/16) CT ANGIOGRAPHY CHEST (06/16/16) ELECTROCARDIOGRAM TRACING (06/16/16) EMERGENCY DEPT VISIT (06/16/16) PROTHROMBIN TIME (06/16/16) (1) Sepsis due to cellulitis SNOMED Code(s): 79082388 Code(s): L03.90 - CELLULITIS, UNSPECIFIED; A41.9 - SEPSIS, UNSPECIFIED ORGANISM Current Visit: Yes (2) Breast abscess of female SNOMED Code(s): 66948668, 526328844 Code(s): N61.1 - ABSCESS OF THE BREAST AND NIPPLE Current Visit: Yes Problem List Initiated/Reviewed/Updated: Yes Plan: We discussed the pathophysiology of breast abscesses. She most likely developed this due to smoking and her nipple piercing. The piercing is out and I encouraged her to stop smoking. The abscess needs to be drained. I offered drainage via US guidance or surgical incision and drainage. We discussed the risks and benefits of each. The patient wants to have surgical drainage. I explained the procedure, the need for post operative wound cares, and the risks including bleeding, infection or damage to surrounding structures. She verbalized understanding and wishes to proceed. She should be made NPO at midnight.
[2018-01-20] MEDS: diphenhydrAMINE 50 MG/ML SDV IVPUSH PRN ×2 (16:42→23:19)
[2018-01-20] MEDS ORDERED: HYDROmorphone 1 MG/ML Syringe IV ONE (17:16)
[2018-01-21] MEDS: Sodium Chloride 0.9% 1,000 ML IV SCH ×3 (01:06→17:48)
[2018-01-21] MEDS: HYDROmorphone 1 MG/ML Syringe IV PRN ×3 (04:52→14:41)
[2018-01-21 06:32] LABS: CHLORIDE,CL 104 mmol/L (98-107); SODIUM,NA 136 mmol/L (136-145)
--- NOTE | 2018-01-21 07:10 | PCM.PREANE ---
Preanesthetic Assessment - Anesthesia/Transfusion/Family Hx Anesthesia History: Prior Anesthesia Without Reaction Family History of Anesthesia Reaction: No Transfusion History: No Prior Transfusion(s) Intubation History: Unknown - Review of Systems General: No Symptoms Pulmonary: No Symptoms Cardiovascular: No Symptoms Gastrointestinal: No Symptoms Neurological: No Symptoms Other: Reports: None - Physical Assessment O2 Sat by Pulse Oximetry: 98 Respiratory Rate: 16 Vital Signs: Last Vital Signs Temp 37.0 C 01/21/18 04:00 Pulse 77 01/21/18 04:00 Resp 16 01/21/18 04:00 BP 98/47 L 01/21/18 04:00 Pulse Ox 98 01/21/18 04:00 Height: 1.68 m Weight: 61.825 kg ASA Class: 2 Mental Status: Alert & Oriented x3 Airway Class: Mallampati = 2 Dentition: Reports: Normal Dentition Thyro-Mental Finger Breadths: 3 Mouth Opening Finger Breadths: 3 ROM/Head Extension: Full Lungs: Clear to Auscultation, Normal Respiratory Effort - Lab Values: Laboratory Last Values WBC 11.15 K/uL (4.0-11.0) H 01/21/18 06:00 RBC 3.47 M/uL (4.30-5.90) L 01/21/18 06:00 Hgb 10.9 g/dL (12.0-16.0) L 01/21/18 06:00 Hct 33.0 % (36.0-46.0) L 01/21/18 06:00 MCV 95.1 fL (80.0-98.0) 01/21/18 06:00 MCH 31.4 pg (27.0-32.0) 01/21/18 06:00 MCHC 33.0 g/dL (31.0-37.0) 01/21/18 06:00 RDW Std Deviation 43.8 fl (28.0-62.0) 01/21/18 06:00 RDW Coeff of Millicent 13 % (11.0-15.0) 01/21/18 06:00 Plt Count 239 K/uL (150-400) 01/21/18 06:00 MPV 9.80 fL (7.40-12.00) 01/21/18 06:00 Neut % (Auto) 77.2 % (48.0-80.0) 01/21/18 06:00 Lymph % (Auto) 14.0 % (16.0-40.0) L 01/21/18 06:00 [place] % (Auto) 7.4 % (0.0-15.0) 01/21/18 06:00 Eos % (Auto) 1.3 % (0.0-7.0) 01/21/18 06:00 Baso % (Auto) 0.1 % (0.0-1.5) 01/21/18 06:00 Neut # (Auto) 8.6 K/uL (1.4-5.7) H 01/21/18 06:00 Lymph # (Auto) 1.6 K/uL (0.6-2.4) 01/21/18 06:00 [place] # (Auto) 0.8 K/uL (0.0-0.8) 01/21/18 06:00 Eos # (Auto) 0.1 K/uL (0.0-0.7) 01/21/18 06:00 Baso # (Auto) 0.0 K/uL (0.0-0.1) 01/21/18 06:00 Nucleated RBC % 0.0 /100WBC 01/21/18 06:00 Nucleated RBCs # 0 K/uL 01/21/18 06:00 Lactate 0.5 mmol/L (0.20-2.00) 01/20/18 04:49 Sodium 136 mmol/L (136-145) 01/21/18 06:00 Potassium 3.9 mmol/L (3.5-5.1) 01/21/18 06:00 Chloride 104 mmol/L (98-107) 01/21/18 06:00 Carbon Dioxide 26.9 mmol/L (21.0-32.0) 01/21/18 06:00 BUN 5 mg/dL (7.0-18.0) L 01/21/18 06:00 Creatinine 0.7 mg/dL (0.6-1.0) 01/21/18 06:00 Est Cr Clr Drug Dosing 113.01 mL/min 01/21/18 06:00 Estimated GFR (MDRD) > 60.0 ml/min 01/21/18 06:00 Glucose 102 mg/dL (74-106) 01/21/18 06:00 Calcium 8.1 mg/dL (8.5-10.1) L 01/21/18 06:00 Total Bilirubin 0.5 mg/dL (0.2-1.0) 01/19/18 22:40 AST 13 IU/L (15-37) L 01/19/18 22:40 ALT 17 IU/L (14-63) 01/19/18 22:40 Alkaline Phosphatase 98 U/L (46-116) 01/19/18 22:40 Total Protein 9.5 g/dL (6.4-8.2) H 01/19/18 22:40 Albumin 4.5 g/dL (3.4-5.0) 01/19/18 22:40 Globulin 5.0 g/dL (2.0-3.5) H 01/19/18 22:40 Albumin/Globulin Ratio 0.9 (1.3-2.8) L 01/19/18 22:40 Vancomycin Trough 8.4 ug/mL (5.0-10.0) 01/21/18 06:00 - Allergies Allergies/Adverse Reactions: Allergies Allergy/AdvReac Type Severity Reaction Status Date / Time amoxicillin Allergy Other Verified 01/19/18 22:01 Penicillins Allergy Other Verified 01/19/18 22:01 - Blood Blood Available: No - Anesthesia Plan Pre-Op Medication Ordered: None - Acknowledgements Anesthesia Type Planned: General Anesthesia Pt an Appropriate Candidate for the Planned Anesthesia: Yes Alternatives and Risks of Anesthesia Discussed w Pt/Guardian: Yes Pt/Guardian Understands and Agrees with Anesthesia Plan: Yes PreAnesthesia Questionnaire HEENT History: Reports: None Cardiovascular History: Reports: Other (See Below). Denies: Afib, Hypertension , [place] Other Cardiovascular History: prolonged QT interval Respiratory History: Reports: None. Denies: Asthma, COPD Gastrointestinal History: Reports: None. 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 Denies: CVA, TIA Psychiatric History: Reports: Bipolar Endocrine/Metabolic History: Reports: None. Denies: Diabetes, Type II Hematologic History: Reports: Anemia Oncologic (Cancer) History: Reports: None Dermatologic History: Reports: None - Infectious Disease History Infectious Disease History: Reports: None - Past Surgical History Head Surgeries/Procedures: Reports: None HEENT Surgical History: Reports: Tonsillectomy - SUBSTANCE USE Smoking Status *Q: Light Tobacco Smoker (4 cigarettes per day) Tobacco Use Within Last Twelve Months: Cigarettes Second Hand Smoke Exposure: Yes Days Per Week of Alcohol Use: 1 Number of Drinks Per Day: 1 Total Drinks Per Week: 1 Recreational Drug Use History: No - HOME MEDS Home Medications: Home Meds Cephalexin [Keflex] 500 mg PO Q8H #21 cap 01/18/18 [Rx] - CURRENT (IN HOUSE) MEDS Current Meds: Current Medications Acetaminophen (Tylenol) 650 mg PO Q6H PRN PRN Reason: Pain Diphenhydramine HCl (Benadryl) 50 mg IVPUSH Q6H PRN PRN Reason: Itching Last Admin: 01/20/18 23:19 Dose: 50 mg Hydromorphone HCl (Dilaudid) 1 mg IV Q3H PRN PRN Reason: Pain Last Admin: 01/21/18 04:52 Dose: 1 mg Sodium Chloride (Normal Saline) 1,000 mls @ 125 mls/hr IV ASDIRECTED [facility] Last Admin: 01/21/18 01:06 Dose: 125 mls/hr Vancomycin HCl 1 gm/ Sodium (Chloride) 250 mls @ 166 mls/hr IV Q6H [facility] Last Admin: 01/21/18 06:52 Dose: 166 mls/hr Ondansetron HCl (Zofran) 4 mg IVPUSH Q4H PRN PRN Reason: Nausea Oxycodone HCl (Oxycodone) 5 mg PO Q4H PRN PRN Reason: Pain Last Admin: 01/20/18 21:07 Dose: 5 mg Vancomycin HCl (Pharmacy To Dose - Vancomycin) 1 dose .XX ASDIRECTED [facility] Discontinued Medications Diphenhydramine HCl (Benadryl) 50 mg IVPUSH ONETIME ONE Stop: 01/19/18 23:49 Last Admin: 01/19/18 23:52 Dose: 50 mg Hydromorphone HCl (Dilaudid) 1 mg IM ONETIME ONE Stop: 01/19/18 22:35 Last Admin: 01/19/18 22:52 Dose: Not Given Hydromorphone HCl (Dilaudid) 0.5 mg IVPUSH ONETIME ONE Stop: 01/19/18 22:50 Last Admin: 01/19/18 22:52 Dose: Not Given Hydromorphone HCl (Dilaudid) 1 mg IVPUSH ONETIME ONE Stop: 01/19/18 22:52 Last Admin: 01/19/18 22:57 Dose: 1 mg Hydromorphone HCl (Dilaudid) 1 mg IVPUSH ONETIME ONE Stop: 01/20/18 00:16 Last Admin: 01/20/18 00:27 Dose: Not Given Hydromorphone HCl (Dilaudid) 1 mg IVPUSH ONETIME ONE Stop: 01/20/18 00:21 Last Admin: 01/20/18 00:26 Dose: 1 mg Hydromorphone HCl (Dilaudid) 1 mg IVPUSH Q3H PRN PRN Reason: Pain Sodium Chloride (Normal Saline) 1,000 mls @ 999 mls/hr IV STAT ONE Stop: 01/19/18 23:34 Last Admin: 01/19/18 22:57 Dose: 999 mls/hr Vancomycin HCl 1 gm/ Sodium (Chloride) 250 mls @ 250 mls/hr IV ONETIME ONE Stop: 01/19/18 23:57 Last Admin: 01/19/18 23:06 Dose: 250 mls/hr Sodium Chloride (Normal Saline) 1,000 mls @ 999 mls/hr IV STAT ONE Stop: 01/20/18 01:16 Last Admin: 01/20/18 00:23 Dose: 999 mls/hr Vancomycin HCl 1 gm/ Sodium (Chloride) 250 mls @ 166 mls/hr IV Q8H [facility] Last Admin: 01/20/18 22:20 Dose: 166 mls/hr
[2018-01-21] MEDS ORDERED: ceFAZolin 1 GM Vial ONE (07:19)
[2018-01-21] MEDS ORDERED: Bupivacaine 0.5% 30 ML SDV ONE (07:20)
[2018-01-21] MEDS ORDERED: Lidocaine 2% 5 ML SDV ONE (07:22)
[2018-01-21] MEDS ORDERED: fentaNYL 100 MCG/2 ML SDV ONE (07:22)
[2018-01-21] MEDS ORDERED: Ondansetron 4 MG/2 ML SDV ONE (07:22)
[2018-01-21] MEDS ORDERED: Midazolam 1 MG/ML 2 ML SDV ONE (07:22)
[2018-01-21] MEDS ORDERED: Propofol 200 MG/20 ML SDV ONE (07:22)
[2018-01-21] MEDS ORDERED: Acetaminophen 1,000 MG in Premix Bag 1 BAG IV PRN (08:42)
[2018-01-21] MEDS ORDERED: fentaNYL 100 MCG/2 ML SDV IVPUSH PRN (08:42)
--- NOTE | 2018-01-21 08:51 | PCM.OPNOTE ---
- General Post-Op/Procedure Note Date of Surgery/Procedure: 01/21/18 Operative Procedure(s): Incision and drainage of right breast abscess Findings: 3 cm deep, 4 cm tall, 5 cm wide breast abscess that was inferior to the areola and tracked right, medial and to the chest wall. Thick tenacious pus Pre Op Diagnosis: Breast abscess Post-Op Diagnosis: same Anesthesia Technique: General LMA Primary Surgeon: Kortney Mckeon EBL in mLs: 5 Condition: Fair Free Text/Narrative:: Intake & Output 01/20/18 01/21/18 01/21/18 22:59 06:59 14:59 Intake Total 2961 1850 Output Total 600 1300 Balance 2361 550
--- NOTE | 2018-01-21 10:58 | PCM.PN ---
- General Info Date of Service: 01/21/18 Admission Dx/Problem (Free Text): Admission Diagnosis/Problem Admission Diagnosis/Problem Sepsis, cellulitis R breast Subjective Update: Very hungry after returning from surgery. Reports pain is there, but improved from before surgery, less pressure. Feeling good. No chest pain or SOB. no complaints currently. Functional Status: Reports: Pain Controlled, Tolerating Diet, Ambulating, Urinating - Review of Systems General: Denies: Fever, Weakness, Fatigue, Malaise HEENT: Reports: No Symptoms. Denies: Headaches, Sore Throat, Visual Changes Pulmonary: Reports: No Symptoms. Denies: Shortness of Breath Cardiovascular: Reports: No Symptoms. Denies: Chest Pain Gastrointestinal: Reports: No Symptoms. Denies: Abdominal Pain, Nausea, Vomiting Musculoskeletal: Reports: No Symptoms Skin: Reports: No Symptoms Psychiatric: Reports: No Symptoms - Patient Data Vitals - Most Recent: Last Vital Signs Temp 97.9 F 01/21/18 08:35 Pulse 60 01/21/18 09:15 Resp 10 L 01/21/18 09:15 BP 96/63 01/21/18 09:15 Pulse Ox 98 01/21/18 09:15 Weight - Most Recent: 61.825 kg I&O - Last 24 Hours: Intake & Output 01/20/18 01/21/18 01/21/18 22:59 06:59 14:59 Intake Total 2961 1850 500 Output Total 600 1300 Balance 2361 550 500 Lab Results Last 24 Hours: Laboratory Results - last 24 hr 01/21/18 01/21/18 01/21/18 Range/Units 06:00 06:00 06:00 WBC 11.15 H (4.0-11.0) K/uL RBC 3.47 L (4.30-5.90) M/uL Hgb 10.9 L (12.0-16.0) g/dL Hct 33.0 L (36.0-46.0) % MCV 95.1 (80.0-98.0) fL MCH 31.4 (27.0-32.0) pg MCHC 33.0 (31.0-37.0) g/dL RDW Std Deviation 43.8 (28.0-62.0) fl RDW Coeff of Millicent 13 (11.0-15.0) % Plt Count 239 (150-400) K/uL MPV 9.80 (7.40-12.00) fL Neut % (Auto) 77.2 (48.0-80.0) % Lymph % (Auto) 14.0 L (16.0-40.0) % [place] % (Auto) 7.4 (0.0-15.0) % Eos % (Auto) 1.3 (0.0-7.0) % Baso % (Auto) 0.1 (0.0-1.5) % Neut # (Auto) 8.6 H (1.4-5.7) K/uL Lymph # (Auto) 1.6 (0.6-2.4) K/uL [place] # (Auto) 0.8 (0.0-0.8) K/uL Eos # (Auto) 0.1 (0.0-0.7) K/uL Baso # (Auto) 0.0 (0.0-0.1) K/uL Nucleated RBC % 0.0 /100WBC Nucleated RBCs # 0 K/uL Sodium 136 (136-145) mmol/L Potassium 3.9 (3.5-5.1) mmol/L Chloride 104 (98-107) mmol/L Carbon Dioxide 26.9 (21.0-32.0) mmol/L BUN 5 L (7.0-18.0) mg/dL Creatinine 0.7 (0.6-1.0) mg/dL Est Cr Clr Drug Dosing 113.01 mL/min Estimated GFR (MDRD) > 60.0 ml/min Glucose 102 (74-106) mg/dL Calcium 8.1 L (8.5-10.1) mg/dL Urine Color Urine Appearance Urine pH (5.0-8.0) Ur Specific [place] (1.001-1.035) Urine Protein (NEGATIVE) mg/dL Urine Glucose (UA) (NEGATIVE) mg/dL Urine Ketones (NEGATIVE) mg/dL Urine Occult Blood (NEGATIVE) Urine Nitrite (NEGATIVE) Urine Bilirubin (NEGATIVE) Urine Urobilinogen (<2.0) EU/dL Ur Leukocyte Esterase (NEGATIVE) Urine RBC (0-2/HPF) Urine WBC (0-5/HPF) Ur Epithelial Cells (NONE-FEW) Urine Bacteria (NEGATIVE) Urine Mucus (NONE-MOD) Urine HCG, Qual (NEGATIVE) Vancomycin Trough 8.4 (5.0-10.0) ug/mL 01/21/18 01/21/18 Range/Units 07:00 07:00 WBC (4.0-11.0) K/uL RBC (4.30-5.90) M/uL Hgb (12.0-16.0) g/dL Hct (36.0-46.0) % MCV (80.0-98.0) fL MCH (27.0-32.0) pg MCHC (31.0-37.0) g/dL RDW Std Deviation (28.0-62.0) fl RDW Coeff of Millicent (11.0-15.0) % Plt Count (150-400) K/uL MPV (7.40-12.00) fL Neut % (Auto) (48.0-80.0) % Lymph % (Auto) (16.0-40.0) % [place] % (Auto) (0.0-15.0) % Eos % (Auto) (0.0-7.0) % Baso % (Auto) (0.0-1.5) % Neut # (Auto) (1.4-5.7) K/uL Lymph # (Auto) (0.6-2.4) K/uL [place] # (Auto) (0.0-0.8) K/uL Eos # (Auto) (0.0-0.7) K/uL Baso # (Auto) (0.0-0.1) K/uL Nucleated RBC % /100WBC Nucleated RBCs # K/uL Sodium (136-145) mmol/L Potassium (3.5-5.1) mmol/L Chloride (98-107) mmol/L Carbon Dioxide (21.0-32.0) mmol/L BUN (7.0-18.0) mg/dL Creatinine (0.6-1.0) mg/dL Est Cr Clr Drug Dosing mL/min Estimated GFR (MDRD) ml/min Glucose (74-106) mg/dL Calcium (8.5-10.1) mg/dL Urine Color YELLOW Urine Appearance CLEAR Urine pH 5.5 (5.0-8.0) Ur Specific [place] 1.010 (1.001-1.035) Urine Protein NEGATIVE (NEGATIVE) mg/dL Urine Glucose (UA) NEGATIVE (NEGATIVE) mg/dL Urine Ketones NEGATIVE (NEGATIVE) mg/dL Urine Occult Blood NEGATIVE (NEGATIVE) Urine Nitrite NEGATIVE (NEGATIVE) Urine Bilirubin NEGATIVE (NEGATIVE) Urine Urobilinogen 0.2 (<2.0) EU/dL Ur Leukocyte Esterase TRACE (NEGATIVE) Urine RBC NONE SEEN (0-2/HPF) Urine WBC 0-1 (0-5/HPF) Ur Epithelial Cells FEW (NONE-FEW) Urine Bacteria FEW (NEGATIVE) Urine Mucus LIGHT (NONE-MOD) Urine HCG, Qual NEGATIVE (NEGATIVE) Vancomycin Trough (5.0-10.0) ug/mL Ifeanyi Results Last 24 Hours: Microbiology 01/19/18 22:51 Aerobic Blood Culture - Preliminary Blood - Venous - Lab Draw NO GROWTH AFTER 1 DAY Anaerobic Blood Culture - Preliminary NO GROWTH AFTER 1 DAY 01/19/18 22:40 Aerobic Blood Culture - Preliminary Blood - Venous NO GROWTH AFTER 1 DAY Anaerobic Blood Culture - Preliminary NO GROWTH AFTER 1 DAY Med Orders - Current: Current Medications Acetaminophen (Tylenol) 650 mg PO Q6H PRN PRN Reason: Pain Diphenhydramine HCl (Benadryl) 50 mg IVPUSH Q6H PRN PRN Reason: Itching Last Admin: 01/20/18 23:19 Dose: 50 mg Fentanyl (Sublimaze) 50 mcg IVPUSH .Q5MIN PRN PRN Reason: Pain Last Admin: 01/21/18 08:58 Dose: 50 mcg Hydromorphone HCl (Dilaudid) 1 mg IV Q3H PRN PRN Reason: Pain Last Admin: 01/21/18 10:23 Dose: 1 mg Sodium Chloride (Normal Saline) 1,000 mls @ 125 mls/hr IV ASDIRECTED [facility] Last Admin: 01/21/18 10:17 Dose: 125 mls/hr Vancomycin HCl 1 gm/ Sodium (Chloride) 250 mls @ 166 mls/hr IV Q6H [facility] Last Admin: 01/21/18 06:52 Dose: 166 mls/hr Acetaminophen 1,000 mg/ Premix 100 mls @ 400 mls/hr IV .ONETIME PRN PRN Reason: moderate pain Last Admin: 01/21/18 09:14 Dose: 400 mls/hr Ondansetron HCl (Zofran) 4 mg IVPUSH Q4H PRN PRN Reason: Nausea Oxycodone HCl (Oxycodone) 5 mg PO Q4H PRN PRN Reason: Pain Last Admin: 01/20/18 21:07 Dose: 5 mg Vancomycin HCl (Pharmacy To Dose - Vancomycin) 1 dose .XX ASDIRECTED [facility] Discontinued Medications Bupivacaine HCl (Marcaine 0.5%) Confirm Administered Dose 30 ml .ROUTE .STK-MED ONE Stop: 01/21/18 07:21 Cefazolin Sodium (Ancef) Confirm Administered Dose 3 gm .ROUTE .STK-MED ONE Stop: 01/21/18 07:20 Diphenhydramine HCl (Benadryl) 50 mg IVPUSH ONETIME ONE Stop: 01/19/18 23:49 Last Admin: 01/19/18 23:52 Dose: 50 mg Fentanyl (Sublimaze) Confirm Administered Dose 100 mcg .ROUTE .STK-MED ONE Stop: 01/21/18 07:23 Hydromorphone HCl (Dilaudid) 1 mg IM ONETIME ONE Stop: 01/19/18 22:35 Last Admin: 01/19/18 22:52 Dose: Not Given Hydromorphone HCl (Dilaudid) 0.5 mg IVPUSH ONETIME ONE Stop: 01/19/18 22:50 Last Admin: 01/19/18 22:52 Dose: Not Given Hydromorphone HCl (Dilaudid) 1 mg IVPUSH ONETIME ONE Stop: 01/19/18 22:52 Last Admin: 01/19/18 22:57 Dose: 1 mg Hydromorphone HCl (Dilaudid) 1 mg IVPUSH ONETIME ONE Stop: 01/20/18 00:16 Last Admin: 01/20/18 00:27 Dose: Not Given Hydromorphone HCl (Dilaudid) 1 mg IVPUSH ONETIME ONE Stop: 01/20/18 00:21 Last Admin: 01/20/18 00:26 Dose: 1 mg Hydromorphone HCl (Dilaudid) 1 mg IVPUSH Q3H PRN PRN Reason: Pain Sodium Chloride (Normal Saline) 1,000 mls @ 999 mls/hr IV STAT ONE Stop: 01/19/18 23:34 Last Admin: 01/19/18 22:57 Dose: 999 mls/hr Vancomycin HCl 1 gm/ Sodium (Chloride) 250 mls @ 250 mls/hr IV ONETIME ONE Stop: 01/19/18 23:57 Last Admin: 01/19/18 23:06 Dose: 250 mls/hr Sodium Chloride (Normal Saline) 1,000 mls @ 999 mls/hr IV STAT ONE Stop: 01/20/18 01:16 Last Admin: 01/20/18 00:23 Dose: 999 mls/hr Vancomycin HCl 1 gm/ Sodium (Chloride) 250 mls @ 166 mls/hr IV Q8H [facility] Last Admin: 01/20/18 22:20 Dose: 166 mls/hr Acetaminophen (Ofirmev) Confirm Administered Dose 100 mls @ as directed IV .STK- MED ONE Stop: 01/21/18 09:13 Lidocaine (Xylocaine-Mpf 2%) Confirm Administered Dose 5 ml .ROUTE .STK-MED ONE Stop: 01/21/18 07:23 Midazolam HCl (Versed 1 Mg/Ml) Confirm Administered Dose 2 mg .ROUTE .STK-MED ONE Stop: 01/21/18 07:23 Ondansetron HCl (Zofran) Confirm Administered Dose 4 mg .ROUTE .STK-MED ONE Stop: 01/21/18 07:23 Propofol (Diprivan 20 Ml) Confirm Administered Dose 200 mg .ROUTE .STK-MED ONE Stop: 01/21/18 07:23 - Exam General: Alert, Oriented, Cooperative, No Acute Distress Neck: Supple Lungs: Clear to Auscultation, Normal Respiratory Effort Cardiovascular: Regular Rate, Regular Rhythm GI/Abdominal Exam: Normal Bowel Sounds, Soft, Non-Tender Extremities: Normal Inspection, Normal Range of Motion Wound/Incisions: Dressing Dry and Intact (R breast, post-operative dressing. Will leave in place. ) Psy/Mental Status: Alert, Normal Affect, Normal Mood - Problem List & Annotations (1) Sepsis due to cellulitis SNOMED Code(s): 04742821 Code(s): L03.90 - CELLULITIS, UNSPECIFIED; A41.9 - SEPSIS, UNSPECIFIED ORGANISM Status: Acute Current Visit: Yes (2) Cellulitis SNOMED Code(s): 222217125 Code(s): L03.90 - CELLULITIS, UNSPECIFIED Status: Acute Current Visit: No Qualifiers: Site of cellulitis: other site Qualified Code(s): L03.818 - Cellulitis of other sites (3) Breast abscess of female SNOMED Code(s): 23306288, 249311161 Code(s): N61.1 - ABSCESS OF THE BREAST AND NIPPLE Status: Suspected Current Visit: Yes - Problem List Review Problem List Initiated/Reviewed/Updated: Yes - My Orders Last 24 Hours: My Active Orders 01/20/18 Dinner NPO After Midnight [Nothing per Oral After Midnight Diet] [DIET] 01/22/18 05:11 BASIC METABOLIC PANEL,BMP [CHEM] AM CBC WITH AUTO DIFF [HEME] AM 01/23/18 05:11 BASIC METABOLIC PANEL,BMP [CHEM] AM CBC WITH AUTO DIFF [HEME] AM - Plan Plan:: This 27 year old female admitted with sepsis secondary to R breast cellulitis with abscess. 1. Sepsis: Resolved. BC neg x 1 day. 2. R breast cellulitis with possible abscess: Abscess noted on U/S.Consult Dr Mckeon, general surgery, took to OR this morning, large abscess drained. Cultures obtained. Will monitor today. Continue Vancomycin. Leukcytosis continues to improve. Temps 99.0. Dilaudid and Oxycodone for pain PRN. VTE prophylaxis: SCDs and ambulation Dispo: 1-2 days pending improvement
[2018-01-21] MEDS: oxyCODONE 5 MG Tab PO PRN ×3 (13:04→22:37)
[2018-01-21] MEDS ORDERED: HYDROmorphone 1 MG/ML Syringe IV ONE (17:20)
[2018-01-21] MEDS: diphenhydrAMINE 50 MG/ML SDV IVPUSH PRN (19:25)
--- NOTE | 2018-01-21 21:07 | PCM.SN ---
- Free Text/Narrative Note: I followe pilo with patient this afternoon. Her dressings had soaked through and were reinforced. I decided to change the dressing completely. She was given 0.5mg of dilaudid bedside and I unpacked the wound. The wound was hemostatic. The dressings were replaced. I packed a saline soaked piece of 1" packing into the wound loosely. I then covered it with a 4 x 4 dressing extrenally. The patient should do this daily and I instructed her how. ' Dressings instructions: 1) remove all dressings before showering. Ok to get soap and water into wound. Pat dry. 2) Place a piece of 1" packing into the wound. Moisten it with water or normal saline first. Pack it into the wound using a q tip. No need to pack tightly. 3) Cover the breast with 4 x 4 gauze and secure in place with tape. Ok to replace as needed to keep wound dry. 4) Do this daily Can follow up in my clinic in 2 weeks. Antibiotics per medicine team. Call with questions.
[2018-01-21] MEDS: HYDROmorphone 2 MG/ML SDV IVPUSH PRN (21:39)
[2018-01-22] MEDS: diphenhydrAMINE 50 MG/ML SDV IVPUSH PRN ×2 (01:07→12:51)
[2018-01-22] MEDS: HYDROmorphone 2 MG/ML SDV IVPUSH PRN (01:13)
[2018-01-22] MEDS: Sodium Chloride 0.9% 1,000 ML IV SCH ×2 (01:35→09:18)
[2018-01-22 06:34] LABS: CHLORIDE,CL 104 mmol/L (98-107); SODIUM,NA 136 mmol/L (136-145)
--- NOTE | 2018-01-22 09:11 | PCM.DCSUM1 ---
Discharge Summary - Hospital Course Brief History: This 27 year old female with no significant pmh presented to the ED last night with complaints of warm, red painful R breast with associated nausea and fevers. She reports approximately 1 week ago she noticed some redness on her right breast, she removed her nipple ring and cleaned it and noticed some drainage from the hole when she did this. She replaced the ring, but with a smaller size, but the redness and pain continued to worsen. She has since removed the piercing from R nipple. She came to the ED on 01/18 and was treated with IM Rocephin and sent home with Keflex, she reports it only worsened and became more reddened, hard and painful. She had a temp at home of 101. She came back to the ED last night for further evaluation. She reports having her nipple pierced in June and everything was good with it until now. She reports she cleans is regularly and has never had anything like this before. She denies injecting anything into her breast, no injury or trauma to he right breast. She denies abdominal pain, shortness of breath or dysuria. She reports tobacco use, 4 cigarettes a day, rare alcohol use. She denies recreational drug use. She denies any surgeries other than tonsillectomy as a young child. In the ED significant leukocytosis noted, 19,210, Lactate 2.2 BMP otherwise WNL. She was noted to be tachycardic and febrile in the ED as well. She was treated with IVF bolus and Vancomycin. She was admitted observation for R breast cellulitis with sepsis and possible abscess. - Discharge Data Discharge Date: 01/22/18 Discharge Disposition: Home, Self-Care 01 Condition: Good - Discharge Diagnosis/Problem(s) (1) Sepsis due to cellulitis SNOMED Code(s): 14276431 ICD Code: L03.90 - CELLULITIS, UNSPECIFIED; A41.9 - SEPSIS, UNSPECIFIED ORGANISM Status: Acute Current Visit: Yes (2) Cellulitis SNOMED Code(s): 223110308 ICD Code: L03.90 - CELLULITIS, UNSPECIFIED Status: Acute Current Visit: No Qualifiers: Site of cellulitis: other site Qualified Code(s): L03.818 - Cellulitis of other sites (3) Breast abscess of female SNOMED Code(s): 90163215, 775976842 ICD Code: N61.1 - ABSCESS OF THE BREAST AND NIPPLE Status: Suspected Current Visit: Yes - Patient Summary/Data Operative Procedure(s) Performed: Incision and drainage of right breast abscess Consults: Consultations 01/20/18 08:00 Consult to Physician [CONS] Routine - Patient Instructions Diet: Regular Diet as Tolerated Activity: As Tolerated Driving: Do Not Drive (while taking narcotics. ) Showering/Bathing: May Shower Wound/Incision Care: Change Dressing Daily - Discharge Plan Prescriptions/Med Rec: Ibuprofen 400 mg PO Q6HR PRN #30 tablet PRN Reason: Pain oxyCODONE 5 mg PO Q6H PRN #25 tablet PRN Reason: Pain Sulfamethoxazole/Trimethoprim [Bactrim Ds Tablet] 1 each PO BID #28 tablet Home Medications: Home Meds Acetaminophen [Tylenol] 650 mg PO Q6H PRN tablet 01/22/18 [Rx] Ibuprofen 400 mg PO Q6HR PRN #30 tablet 01/22/18 [Rx] Sulfamethoxazole/Trimethoprim [Bactrim Ds Tablet] 1 each PO BID #28 tablet 01/22 [Rx] oxyCODONE 5 mg PO Q6H PRN #25 tablet 01/22/18 [Rx] Patient Handouts: Cellulitis, Adult, [id number], Incision and Drainage, Care After Referrals: Kortney Mckeon MD [Physician] - (Follow up in 2 week, please call clinic January 23 to arrange appointment due to holiday. ) PCP,None [Primary Care Provider] - - Discharge Summary/Plan Comment DC Time >30 min.: No Discharge Summary/Plan Comment: Discharge Diagnoses: R breast abscess- S/p I&D Nicki was admitted with sepsis secondary to R breast abscess. Dr Mckeon, general surgery, was consulted and took patient back for I&D on 01/21/2018. She drained a good sized abscess to R inner breast. Leukocytosis has resolved, 8, 000 today. She is afebrile and feeling good. She will be discharged home today with daily dressing changes, Dr Mckeon showed patient how to change last evening and left instructions. She will be discharge home with Bactrim DS Q12h for 14 days. BC so far are negative and wound culture from OR is showing no growth x 1 day. She will be set up to see Dr Mckeon in 2 weeks. She was educated to return to the ED or clinic if pain were to worsen, fevers return or redness to R breast increases. She verbalized understanding. She will be given Ozycodone 5 mg PO Q6h PRN pain #25 tabs no refills. SHe may also take Tylenol and Ibuprofen PRN for pain as well. - General Info Date of Service: 01/22/18 Admission Dx/Problem (Free Text: Admission Diagnosis/Problem Admission Diagnosis/Problem Sepsis, cellulitis R breast Subjective Update: Just waking up this morning, reports pain is well tolerated with Oxycodone. No concerns and is eager to be discharged home. She denies chest pain or SOB. No subjective fevers overnight. Functional Status: Reports: Pain Controlled, Tolerating Diet, Ambulating, Urinating - Review of Systems General: Reports: No Symptoms. Denies: Fever, Weakness, Fatigue HEENT: Reports: No Symptoms. Denies: Sore Throat, Visual Changes Pulmonary: Reports: No Symptoms. Denies: Shortness of Breath Cardiovascular: Reports: No Symptoms. Denies: Chest Pain, Palpitations Gastrointestinal: Reports: No Symptoms. Denies: Abdominal Pain, Nausea, Vomiting Genitourinary: Reports: No Symptoms. Denies: Dysuria, Frequency, Burning Musculoskeletal: Reports: No Symptoms Skin: Reports: Other (R breast incision, pain tolerable. No concerns. ) Neurological: Reports: No Symptoms Psychiatric: Reports: No Symptoms - Patient Data Vitals - Most Recent: Last Vital Signs Temp 98.1 F 01/22/18 04:00 Pulse 80 01/22/18 04:00 Resp 16 01/22/18 04:00 BP 118/57 L 01/22/18 04:00 Pulse Ox 98 01/22/18 04:00 Weight - Most Recent: 61.825 kg I&O - Last 24 hours: Intake & Output 01/21/18 01/22/18 01/22/18 22:59 06:59 14:59 Intake Total 2277 800 Output Total 1850 1500 Balance 427 -700 Lab Results - Last 24 hrs: Laboratory Results - last 24 hr 01/22/18 01/22/18 01/22/18 Range/Units 06:06 06:06 06:06 WBC 8.52 (4.0-11.0) K/uL RBC 3.50 L (4.30-5.90) M/uL Hgb 11.0 L (12.0-16.0) g/dL Hct 33.0 L (36.0-46.0) % MCV 94.3 (80.0-98.0) fL MCH 31.4 (27.0-32.0) pg MCHC 33.3 (31.0-37.0) g/dL RDW Std Deviation 42.1 (28.0-62.0) fl RDW Coeff of Millicent 12 (11.0-15.0) % Plt Count 248 (150-400) K/uL MPV 9.80 (7.40-12.00) fL Neut % (Auto) 73.0 (48.0-80.0) % Lymph % (Auto) 20.2 (16.0-40.0) % Whitman % (Auto) 4.8 (0.0-15.0) % Eos % (Auto) 1.9 (0.0-7.0) % Baso % (Auto) 0.1 (0.0-1.5) % Neut # (Auto) 6.2 H (1.4-5.7) K/uL Lymph # (Auto) 1.7 (0.6-2.4) K/uL Whitman # (Auto) 0.4 (0.0-0.8) K/uL Eos # (Auto) 0.2 (0.0-0.7) K/uL Baso # (Auto) 0.0 (0.0-0.1) K/uL Nucleated RBC % 0.0 /100WBC Nucleated RBCs # 0 K/uL Sodium 136 (136-145) mmol/L Potassium 4.0 (3.5-5.1) mmol/L Chloride 104 (98-107) mmol/L Carbon Dioxide 27.3 (21.0-32.0) mmol/L BUN 5 L (7.0-18.0) mg/dL Creatinine 0.8 (0.6-1.0) mg/dL Est Cr Clr Drug Dosing 98.88 mL/min Estimated GFR (MDRD) > 60.0 ml/min Glucose 118 H (74-106) mg/dL Calcium 8.2 L (8.5-10.1) mg/dL Vancomycin Trough 13.6 H (5.0-10.0) ug/mL MELINDA Results - Last 24 hrs: Microbiology 01/21/18 08:20 Gram Stain - Final Breast, Right Wound Culture - Preliminary NO GROWTH AFTER 1 DAY 01/19/18 22:51 Aerobic Blood Culture - Preliminary Blood - Venous - Lab Draw NO GROWTH AFTER 2 DAYS Anaerobic Blood Culture - Preliminary NO GROWTH AFTER 2 DAYS 01/19/18 22:40 Aerobic Blood Culture - Preliminary Blood - Venous NO GROWTH AFTER 2 DAYS Anaerobic Blood Culture - Preliminary NO GROWTH AFTER 2 DAYS Med Orders - Current: Current Medications Acetaminophen (Tylenol) 650 mg PO Q6H PRN PRN Reason: Pain Diphenhydramine HCl (Benadryl) 50 mg IVPUSH Q6H PRN PRN Reason: Itching Last Admin: 01/22/18 01:07 Dose: 50 mg Fentanyl (Sublimaze) 50 mcg IVPUSH .Q5MIN PRN PRN Reason: Pain Last Admin: 01/21/18 08:58 Dose: 50 mcg Hydromorphone HCl (Dilaudid) 1 mg IVPUSH Q3H PRN PRN Reason: Pain Last Admin: 01/22/18 01:13 Dose: 1 mg Sodium Chloride (Normal Saline) 1,000 mls @ 125 mls/hr IV ASDIRECTED [facility] Last Admin: 01/22/18 01:35 Dose: 125 mls/hr Vancomycin HCl 1 gm/ Sodium (Chloride) 250 mls @ 166 mls/hr IV Q6H SHAMIKA Last Admin: 01/22/18 06:43 Dose: 166 mls/hr Acetaminophen 1,000 mg/ Premix 100 mls @ 400 mls/hr IV .ONETIME PRN PRN Reason: moderate pain Last Admin: 01/21/18 09:14 Dose: 400 mls/hr Ondansetron HCl (Zofran) 4 mg IVPUSH Q4H PRN PRN Reason: Nausea Oxycodone HCl (Oxycodone) 5 mg PO Q4H PRN PRN Reason: Pain Last Admin: 01/21/18 22:37 Dose: 5 mg Vancomycin HCl (Pharmacy To Dose - Vancomycin) 1 dose .XX ASDIRECTED [facility] Discontinued Medications Bupivacaine HCl (Marcaine 0.5%) Confirm Administered Dose 30 ml .ROUTE .STK-MED ONE Stop: 01/21/18 07:21 Cefazolin Sodium (Ancef) Confirm Administered Dose 3 gm .ROUTE .STK-MED ONE Stop: 01/21/18 07:20 Diphenhydramine HCl (Benadryl) 50 mg IVPUSH ONETIME ONE Stop: 01/19/18 23:49 Last Admin: 01/19/18 23:52 Dose: 50 mg Fentanyl (Sublimaze) Confirm Administered Dose 100 mcg .ROUTE .STK-MED ONE Stop: 01/21/18 07:23 Hydromorphone HCl (Dilaudid) 1 mg IM ONETIME ONE Stop: 01/19/18 22:35 Last Admin: 01/19/18 22:52 Dose: Not Given Hydromorphone HCl (Dilaudid) 0.5 mg IVPUSH ONETIME ONE Stop: 01/19/18 22:50 Last Admin: 01/19/18 22:52 Dose: Not Given Hydromorphone HCl (Dilaudid) 1 mg IVPUSH ONETIME ONE Stop: 01/19/18 22:52 Last Admin: 01/19/18 22:57 Dose: 1 mg Hydromorphone HCl (Dilaudid) 1 mg IVPUSH ONETIME ONE Stop: 01/20/18 00:16 Last Admin: 01/20/18 00:27 Dose: Not Given Hydromorphone HCl (Dilaudid) 1 mg IVPUSH ONETIME ONE Stop: 01/20/18 00:21 Last Admin: 01/20/18 00:26 Dose: 1 mg Hydromorphone HCl (Dilaudid) 1 mg IVPUSH Q3H PRN PRN Reason: Pain Hydromorphone HCl (Dilaudid) 1 mg IV Q3H PRN PRN Reason: Pain Last Admin: 01/21/18 14:41 Dose: 1 mg Hydromorphone HCl (Dilaudid) 0.5 mg IV ONETIME ONE Stop: 01/20/18 17:17 Last Admin: 01/21/18 17:31 Dose: Not Given Hydromorphone HCl (Dilaudid) 0.5 mg IV ONETIME ONE Stop: 01/21/18 17:21 Last Admin: 01/21/18 17:39 Dose: 0.5 mg Sodium Chloride (Normal Saline) 1,000 mls @ 999 mls/hr IV STAT ONE Stop: 01/19/18 23:34 Last Admin: 01/19/18 22:57 Dose: 999 mls/hr Vancomycin HCl 1 gm/ Sodium (Chloride) 250 mls @ 250 mls/hr IV ONETIME ONE Stop: 01/19/18 23:57 Last Admin: 01/19/18 23:06 Dose: 250 mls/hr Sodium Chloride (Normal Saline) 1,000 mls @ 999 mls/hr IV STAT ONE Stop: 01/20/18 01:16 Last Admin: 01/20/18 00:23 Dose: 999 mls/hr Vancomycin HCl 1 gm/ Sodium (Chloride) 250 mls @ 166 mls/hr IV Q8H SHAMIKA Last Admin: 01/20/18 22:20 Dose: 166 mls/hr Acetaminophen (Ofirmev) Confirm Administered Dose 100 mls @ as directed IV .STK- MED ONE Stop: 01/21/18 09:13 Lidocaine (Xylocaine-Mpf 2%) Confirm Administered Dose 5 ml .ROUTE .STK-MED ONE Stop: 01/21/18 07:23 Midazolam HCl (Versed 1 Mg/Ml) Confirm Administered Dose 2 mg .ROUTE .STK-MED ONE Stop: 01/21/18 07:23 Ondansetron HCl (Zofran) Confirm Administered Dose 4 mg .ROUTE .STK-MED ONE Stop: 01/21/18 07:23 Propofol (Diprivan 20 Ml) Confirm Administered Dose 200 mg .ROUTE .STK-MED ONE Stop: 01/21/18 07:23 - Exam General: Reports: Alert, Oriented, Cooperative, No Acute Distress Lungs: Reports: Clear to Auscultation, Normal Respiratory Effort Cardiovascular: Reports: Regular Rate, Regular Rhythm GI/Abdominal Exam: Normal Bowel Sounds, Soft, Non-Tender Back Exam: Reports: Normal Inspection, Full Range of Motion Wound/Incisions: Reports: Dressing Dry and Intact (R breast, dressing to be changed today prior to discharge.), Drainage (scant drainage on dressing this morning.), Erythema Improving Neurological: Reports: No New Focal Deficit Psy/Mental Status: Reports: Alert, Normal Affect, Normal Mood
[2018-01-22 10:07] VITALS: BP 87/45
--- NOTE | 2018-01-22 12:23 | OR ---
SURGEON: TREVOR SAUCEDO MD DATE OF PROCEDURE: 01/20/2018 PREOPERATIVE DIAGNOSIS: Right breast abscess. POSTOPERATIVE DIAGNOSIS: Right breast abscess. PROCEDURE PERFORMED: Incision and drainage of right breast abscess. ANESTHESIA: General LMA. FLUIDS: See anesthesia record. ESTIMATED BLOOD LOSS: 5 mL. FINDINGS: Right breast abscess that was located behind the nipple and extended medially. It measured 3 cm deep, 4 cm vertically, and 5 cm horizontally. COMPLICATIONS: None. INDICATIONS: The patient is a 27-year-old female who presented with right breast cellulitis, pain, and swelling. An ultrasound showed a fluid collection under the right areola. The patient and I discussed the need for an incision and drainage of this large breast abscess. I explained the procedure, expected perioperative course, the need for dressing changes afterwards, and the risks including bleeding, infection, or damage to surrounding structures. The patient verbalized understanding and wishes to proceed. PROCEDURE IN DETAIL: The patient was brought into the OR and placed on the OR table in supine position. A time-out was completed verifying the patient's name, age, date of , allergies, and procedure to be performed. General LMA anesthesia was induced. The right breast and chest were prepped and draped in usual standard fashion. I anesthetized the right medial breast with 0.5% Marcaine plain. A medial curva-linear incision was made using a 15 blade around the areolar border. I immediately encountered a large amount of purulent material. This was collected and sent for aerobic and anaerobic cultures, and Gram stain. I extended my incision and encountered a large abscess cavity underneath the nipple and extending medially. I expressed a large amount of thick, tenacious pus. This was irrigated out with normal saline. I broke up any loculations bluntly. I then measured my wound. It measured approximately 3 cm deep, 4 cm in the vertical plane, and 5 cm horizontally. The wound was then irrigated again to ensure that I had evacuated all purulent material. I then packed the wound with 1-inch iodoform packing soaked in saline and covered the wound with 4 x 4 gauze. The gauze was secured with Medipore tape. The patient tolerated the procedure well. She was extubated and taken to PACU in stable condition. AG PRESCOTT /[id number] MTDD
[2018-01-22] MEDS: oxyCODONE 5 MG Tab PO PRN (12:37)
[2018-01-22] MEDS ORDERED: Sulfamethoxazole/Trimethoprim 800-160 MG Tab PO SCH (21:00)
== END 2018-01-22 15:10 | disposition home or self-care (01) ==
LOC: MW.ED 21:44 → MW.MS 01-20 01:13
PROVIDERS: ADMIT Internal Medicine; ATTEND Internal Medicine
DX: N61.1 Abscess of the breast and nipple (principal); A41.9 Sepsis, unspecified organism; F17.210 Nicotine dependence, cigarettes, uncomplicated
CPT/HCPCS: 19020; 36415; 76641; 80048; 80053; 80202; 81001; 81025; 83605; 85025; 87040; 87070; 87075; 87205; 96361; 96365; 96375; 96376; 99284; A9270; J0690; J1170; J1200; J2250; J2405; J3010; J3370; J7040; J7050; J2704

== ENCOUNTER 2018-03-30 18:59 | Observation (INO) | payer MEDICAID ==
[2018-03-30] MEDS ORDERED: Sodium Chloride 0.9% 1,000 ML IV ONE (19:21)
[2018-03-30] MEDS ORDERED: Sodium Chloride 0.9% 2.5 ML Syringe FLUSH PRN (19:22)
[2018-03-30] MEDS ORDERED: Sodium Chloride 0.9% 10 ML Syringe FLUSH PRN (19:22)
[2018-03-30] MEDS ORDERED: HYDROmorphone 1 MG/ML Syringe IVPUSH ONE ×2 (19:22→20:56)
--- NOTE | 2018-03-30 19:30 | EDM.PDOC ---
ED HPI GENERAL MEDICAL PROBLEM - General Chief Complaint: Skin Complaint Stated Complaint: POSSIBLE CELULITIS Time Seen by Provider: 03/30/18 19:11 - History of Present Illness INITIAL COMMENTS - FREE TEXT/NARRATIVE: HISTORY AND PHYSICAL: History of present illness: The patient is a healthy 27-year-old female who presents with worsening of a cellulitis on her left breast and is concerned about an abscess. The patient was seen here 2 days ago and evaluated for redness at her left breast at the 2 to 3 o'clock position but there was no evidence of any abscess or fluctuance at that time. The patient had no nipple drainage and no fevers. She had normal labs and was placed on Keflex and returns today saying that it is worsening. The patient had a similar episode in January of this year on the right breast where she had to have incision and drainage of an abscess with Dr. Mckoen. She said the progression of this left breast is very similar. She's had no systemic complaints of fever chills nausea vomiting coughing chest pain or shortness of breath. The patient denies as she is in a monogamous same-sex relationship. The patient denies any nipple drainage. The patient states that she had bilateral nipple piercings and when she developed the abscess in the right side to remove the piercing. She says that when this started evolving 2 days ago she removed the piercing at that time but prior to that it was in place. There is pain localized to the area Review of systems: As per history of present illness and below otherwise all systems reviewed and negative. Past medical history: As per history of present illness and as reviewed below otherwise noncontributory. Surgical history: As per history of present illness and as reviewed below otherwise noncontributory. Social history: No reported history of drug or alcohol abuse. Family history: As per history of present illness and as reviewed below otherwise noncontributory. Physical exam: General: Well-developed well-nourished female who is nontoxic and vital signs were noted by me. HEENT: Atraumatic, normocephalic, negative for conjunctival pallor or scleral icterus, mucous membranes moist, throat clear, neck supple, nontender, trachea midline. Lungs: Clear to auscultation, breath sounds equal bilaterally, chest wall without tenderness or crepitus and there is no axillary lymphadenopathy on the left. At the left breast at the 2 to 3 o'clock position there is a 10 x 7 cm area of erythema which compresses the areolar but extends more laterally and within that there is a 4 x 3 area of well-defined firmness and tenderness. There is no gross nipple drainage appreciated. There is no streaking of this redness. The area is very warm to touch Heart: S1S2, regular rhythm and slightly tachycardic on my evaluation Abdomen: Soft, nondistended, nontender. Negative for masses or hepatosplenomegaly. NABS Pelvis: Deferred Genitourinary: Deferred. Rectal: Deferred. Extremities: Atraumatic, full range of motion without defects or deficits Neurovascular unremarkable. Neuro: Awake, alert, oriented. Cranial nerves II through XII unremarkable. Cerebellum unremarkable. Motor and sensory unremarkable throughout. Exam nonfocal. Diagnostics: CBC CMP breast ultrasound Therapeutics: IV fluids vancomycin Dilaudid Benadryl Vistaril The patient's last admission the beginning of January was reviewed by me and the patient did receive vancomycin throughout the course of her stay here but needed Benadryl to be given simultaneously as she developed itching. The patient is comfortable with receiving vancomycin again today as long as she gets Benadryl which I will dose. 2044: Case was discussed with Dr. Osuna who is aware that Dr. Mckeon has taken care of this patient in January. He will come in to see the patient and plan for admission. 2106: Dr. Osuna here in the ED and has spoken to Dr. Mckeon and he would likely admission to the observation under her name but he is currently seeing the patient for orders. Impression: Left breast mass/abscess Definitive disposition and diagnosis as appropriate pending reevaluation and review of above. left breast Pain Score (Numeric/FACES): 9 - Related Data Allergies Allergy/AdvReac Type Severity Reaction Status Date / Time amoxicillin Allergy Cannot Verified 03/30/18 19:11 Remember Penicillins Allergy Cannot Verified 03/30/18 19:11 Remember Home Meds: Home Meds Cephalexin [Keflex] 500 mg PO BID #20 capsule 03/28/18 [Rx] Past Medical History HEENT History: Reports: None Cardiovascular History: Reports: Other (See Below) Other Cardiovascular History: prolonged QT interval Respiratory History: Reports: None Gastrointestinal History: Reports: None Genitourinary History: Reports: None HEAD PASTRY CHEF History: Reports: , Other (See Below) Other HEAD PASTRY CHEF History: abscess to right breast, drained Musculoskeletal History: Reports: None Neurological History: Reports: None Psychiatric History: Reports: Bipolar Endocrine/Metabolic History: Reports: None Hematologic History: Reports: Anemia Immunologic History: Reports: None Oncologic (Cancer) History: Reports: None Dermatologic History: Reports: None - Infectious Disease History Infectious Disease History: Reports: None - Past Surgical History Head Surgeries/Procedures: Reports: None HEENT Surgical History: Reports: Tonsillectomy Cardiovascular Surgical History: Reports: None Respiratory Surgical History: Reports: None GI Surgical History: Reports: None Female Surgical History: Reports: None Endocrine Surgical History: Reports: None 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 ED EXAM, SKIN/RASH Exam: See Below (See dictation) Course - Vital Signs Last Recorded V/S: Last Vital Signs Temp 37.2 C 03/30/18 20:54 Pulse 79 03/30/18 20:54 Resp 14 03/30/18 20:54 BP 95/48 L 03/30/18 20:54 Pulse Ox 100 03/30/18 20:54 - Orders/Labs/Meds Orders: Active Orders 24 hr Category Date Time Status Patient Status [ADT] Stat ADT 03/30/18 21:07 Ordered Breast Limited Lt [US] Stat Exams 03/30/18 19:22 Ordered Sodium Chloride 0.9% [Saline Flush] Med 03/30/18 19:22 Active 10 ml FLUSH ASDIRECTED PRN Sodium Chloride 0.9% [Saline Flush] Med 03/30/18 19:22 Active 2.5 ml FLUSH ASDIRECTED PRN Saline Lock Insert [OM.PC] Stat Oth 03/30/18 19:21 Ordered Medication Orders Sodium Chloride (Saline Flush) 10 ml FLUSH ASDIRECTED PRN PRN Reason: Keep Vein Open Sodium Chloride (Saline Flush) 2.5 ml FLUSH ASDIRECTED PRN PRN Reason: Keep Vein Open Labs: Laboratory Tests 03/30/18 03/30/18 Range/Units 19:25 19:25 WBC 11.19 H (4.0-11.0) K/uL RBC 4.03 L (4.30-5.90) M/uL Hgb 12.9 (12.0-16.0) g/dL Hct 37.8 (36.0-46.0) % MCV 93.8 (80.0-98.0) fL MCH 32.0 (27.0-32.0) pg MCHC 34.1 (31.0-37.0) g/dL RDW Std Deviation 43.6 (28.0-62.0) fl RDW Coeff of Millicent 13 (11.0-15.0) % Plt Count 246 (150-400) K/uL MPV 10.40 (7.40-12.00) fL Neut % (Auto) 83.9 H (48.0-80.0) % Lymph % (Auto) 8.8 L (16.0-40.0) % [place] % (Auto) 5.0 (0.0-15.0) % Eos % (Auto) 2.1 (0.0-7.0) % Baso % (Auto) 0.2 (0.0-1.5) % Neut # (Auto) 9.4 H (1.4-5.7) K/uL Lymph # (Auto) 1.0 (0.6-2.4) K/uL [place] # (Auto) 0.6 (0.0-0.8) K/uL Eos # (Auto) 0.2 (0.0-0.7) K/uL Baso # (Auto) 0.0 (0.0-0.1) K/uL Nucleated RBC % 0.0 /100WBC Nucleated RBCs # 0 K/uL Sodium 136 (136-145) mmol/L Potassium 3.9 (3.5-5.1) mmol/L Chloride 101 (98-107) mmol/L Carbon Dioxide 26.1 (21.0-32.0) mmol/L BUN 7 (7.0-18.0) mg/dL Creatinine 0.8 (0.6-1.0) mg/dL Est Cr Clr Drug Dosing 95.05 mL/min Estimated GFR (MDRD) > 60.0 ml/min Glucose 115 H (74-106) mg/dL Calcium 9.2 (8.5-10.1) mg/dL Total Bilirubin 0.4 (0.2-1.0) mg/dL AST 10 L (15-37) IU/L ALT 12 L (14-63) IU/L Alkaline Phosphatase 69 (46-116) U/L Total Protein 7.9 (6.4-8.2) g/dL Albumin 3.7 (3.4-5.0) g/dL Globulin 4.2 H (2.0-3.5) g/dL Albumin/Globulin Ratio 0.9 L (1.3-2.8) Meds: Medications Generic Name Dose Route Start Last Admin Trade Name Freq PRN Reason Stop Dose Admin Sodium Chloride 10 ml 03/30/18 19:22 Saline Flush FLUSH ASDIRECTED PRN Keep Vein Open Sodium Chloride 2.5 ml 03/30/18 19:22 Saline Flush FLUSH ASDIRECTED PRN Keep Vein Open Discontinued Medications Generic Name Dose Route Start Last Admin Trade Name Freq PRN Reason Stop Dose Admin Diphenhydramine HCl 50 mg 03/30/18 19:33 03/30/18 19:41 Benadryl IVPUSH 03/30/18 19:34 50 mg ONETIME ONE Administration Hydromorphone HCl 1 mg 03/30/18 19:22 03/30/18 19:34 Dilaudid IVPUSH 03/30/18 19:23 1 mg ONETIME ONE Administration Hydromorphone HCl 1 mg 03/30/18 20:56 03/30/18 21:03 Dilaudid IVPUSH 03/30/18 20:57 1 mg ONETIME ONE Administration Hydroxyzine Pamoate 25 mg 03/30/18 20:44 03/30/18 20:53 Vistaril PO 03/30/18 20:45 25 mg ONETIME ONE Administration Sodium Chloride 1,000 mls @ 999 mls/hr 03/30/18 19:21 03/30/18 19:34 Normal Saline IV 03/30/18 20:21 999 mls/hr STAT ONE Administration Vancomycin HCl 1 gm/ Sodium 250 mls @ 250 mls/hr 03/30/18 19:21 Chloride IV 03/30/18 20:20 ONETIME ONE Vancomycin HCl 1 gm/ Sodium 250 mls @ 250 mls/hr 03/30/18 19:33 03/30/18 19: 42 Chloride IV 03/30/18 20:32 250 mls/hr ONETIME ONE Administration Departure - Departure Time of Disposition: 21:09 Disposition: Refer to Observation Condition: Good Clinical Impression: Breast abscess - Discharge Information Referrals: PCP,None [Primary Care Provider] - Forms: ED Department Discharge - My Orders Last 24 Hours: My Active Orders 03/30/18 19:21 Saline Lock Insert [OM.PC] Stat 03/30/18 19:22 Breast Limited Lt [US] Stat Sodium Chloride 0.9% [Saline Flush] 10 ml FLUSH ASDIRECTED PRN Sodium Chloride 0.9% [Saline Flush] 2.5 ml FLUSH ASDIRECTED PRN 03/30/18 21:07 Patient Status [ADT] Stat - Assessment/Plan Last 24 Hours: My Active Orders 03/30/18 19:21 Saline Lock Insert [OM.PC] Stat 03/30/18 19:22 Breast Limited Lt [US] Stat Sodium Chloride 0.9% [Saline Flush] 10 ml FLUSH ASDIRECTED PRN Sodium Chloride 0.9% [Saline Flush] 2.5 ml FLUSH ASDIRECTED PRN 03/30/18 21:07 Patient Status [ADT] Stat
[2018-03-30] MEDS ORDERED: diphenhydrAMINE 50 MG/ML SDV IVPUSH ONE (19:33)
[2018-03-30 20:09] LABS: CHLORIDE,CL 101 mmol/L (98-107); SODIUM,NA 136 mmol/L (136-145)
[2018-03-30] MEDS ORDERED: hydrOXYzine Pamoate 25 MG Cap PO ONE (20:44)
[2018-03-30] MEDS ORDERED: Ondansetron 4 MG/2 ML SDV IVPUSH PRN (21:19)
[2018-03-30] MEDS ORDERED: Acetaminophen/HYDROcodone 325-5 MG Tab PO PRN (21:19)
--- NOTE | 2018-03-30 21:20 | PCM.CONS ---
Addendum entered and electronically signed by Christ Byrnes MD 03/30/18 21:28: The second line of the HPI should read "...ED a few days ago and diagnosed with a cellulitis..." Original Note: <Christ Byrnes - Last Filed: 03/30/18 21:14> H&P History of Present Illness - General Date of Service: 03/30/18 Admit Problem/Dx: Admission Diagnosis/Problem Admission Diagnosis/Problem Breast infection Source of Information: Patient History Limitations: Reports: No Limitations - History of Present Illness Initial Comments - Free Text/Narative: Patient is a relatively healthy 27 y/o F who presents with a painful area of red skin at the 3 o'clock position on her left breast. She was seen in the ED a few days ago an diagnosed with a cellulitis. She was given keflex. Unfortunately the pain in the left breast continued to worsen and started to become more swollen. She denies any abnormal drainage from the breast or the nipple. She has not had any measured fevers but she does report some chills. She does have a history of a contralateral (right) breast abscess that was treated with an I&D. The cause of that abscess was believed to have been related to a piercing on that side. Onset of Symptoms: Reports: Gradual left breast Pain Score (Numeric/FACES): 9 - Related Data Allergies/Adverse Reactions: Allergies Allergy/AdvReac Type Severity Reaction Status Date / Time amoxicillin Allergy Cannot Verified 03/30/18 19:11 Remember Penicillins Allergy Cannot Verified 03/30/18 19:11 Remember Home Medications: Home Meds Cephalexin [Keflex] 500 mg PO BID #20 capsule 03/28/18 [Rx] Past Medical History HEENT History: Reports: None Cardiovascular History: Reports: Other (See Below) Other Cardiovascular History: prolonged QT interval Respiratory History: Reports: None Gastrointestinal History: Reports: None Genitourinary History: Reports: None [employer] History: Reports: , Other (See Below) Other OB/BYN History: abscess to right breast, drained Musculoskeletal History: Reports: None Neurological History: Reports: None Psychiatric History: Reports: Bipolar Endocrine/Metabolic History: Reports: None Hematologic History: Reports: Anemia Immunologic History: Reports: None Oncologic (Cancer) History: Reports: None Dermatologic History: Reports: None - Infectious Disease History Infectious Disease History: Reports: None - Past Surgical History Head Surgeries/Procedures: Reports: None HEENT Surgical History: Reports: Tonsillectomy Cardiovascular Surgical History: Reports: None Respiratory Surgical History: Reports: None GI Surgical History: Reports: None Female Surgical History: Reports: None Endocrine Surgical History: Reports: None 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 Musculoskeletal Surgical History: Reports: None Dermatological Surgical History: Reports: None Social & Family History - Family History Family Medical History: Noncontributory Other Family History: The patient reports that she is a carrier for the long-QT syndrome gene - Tobacco Use Smoking Status *Q: Current Every Day Smoker Years of Tobacco use: 10 Packs/Tins Daily: 0.5 - Caffeine Use Caffeine Use: Reports: Soda - Recreational Drug Use Recreational Drug Use: No - Living Situation & Occupation Living situation: Reports: Single Occupation: Employed H&P Review of Systems - Review of Systems: Review Of Systems: See Below General: Reports: Chills, Malaise. Denies: Fever HEENT: Reports: No Symptoms Pulmonary: Reports: No Symptoms Cardiovascular: Reports: No Symptoms Gastrointestinal: Reports: Anorexia, Decreased Appetite, Nausea Genitourinary: Reports: No Symptoms Musculoskeletal: Reports: No Symptoms Skin: Reports: Erythema, Change in Color, Other (see HPI) Psychiatric: Reports: No Symptoms Neurological: Reports: No Symptoms Hematologic/Lymphatic: Reports: No Symptoms Immunologic: Reports: No Symptoms Exam - Exam Exam: See Below (.) - Vital Signs Vital Signs: Last Vital Signs Temp 99 F 03/30/18 20:54 Pulse 79 03/30/18 20:54 Resp 14 03/30/18 20:54 BP 95/48 L 03/30/18 20:54 Pulse Ox 100 03/30/18 20:54 Weight: 129 lb 3.054 oz - Exam General: Alert, Oriented HEENT: Conjunctiva Clear, Hearing Intact Neck: Supple, Trachea Midline Lungs: Clear to Auscultation, Normal Respiratory Effort Cardiovascular: Regular Rate, Regular Rhythm GI/Abdominal Exam: Normal Bowel Sounds, Soft, Non-Tender (Female) Exam: Deferred Rectal (Female) Exam: Deferred Extremities: Normal Inspection, Non-Tender Peripheral Pulses: 2+: Radial (L), Radial (R) Skin: Other (There is a 5 cm area of erythema at the 3 o'clock position of the left breast. There is underlying flucuance and the area is tender to palpation. There is no skin breakdown or drainage.) Neurological: Cranial Nerves Intact Neuro Extensive - Mental Status: Alert, Oriented x3, Normal Mood/Affect Neuro Extensive - Motor, Sensory, Reflexes: CN II-XII Intact, Normal Gait Psychiatric: Alert, Normal Affect, Normal Mood - Patient Data Lab Results Last 24 hrs: Laboratory Results - last 24 hr 03/30/18 03/30/18 Range/Units 19:25 19:25 WBC 11.19 H (4.0-11.0) K/uL RBC 4.03 L (4.30-5.90) M/uL Hgb 12.9 (12.0-16.0) g/dL Hct 37.8 (36.0-46.0) % MCV 93.8 (80.0-98.0) fL MCH 32.0 (27.0-32.0) pg MCHC 34.1 (31.0-37.0) g/dL RDW Std Deviation 43.6 (28.0-62.0) fl RDW Coeff of Millicent 13 (11.0-15.0) % Plt Count 246 (150-400) K/uL MPV 10.40 (7.40-12.00) fL Neut % (Auto) 83.9 H (48.0-80.0) % Lymph % (Auto) 8.8 L (16.0-40.0) % [place] % (Auto) 5.0 (0.0-15.0) % Eos % (Auto) 2.1 (0.0-7.0) % Baso % (Auto) 0.2 (0.0-1.5) % Neut # (Auto) 9.4 H (1.4-5.7) K/uL Lymph # (Auto) 1.0 (0.6-2.4) K/uL [place] # (Auto) 0.6 (0.0-0.8) K/uL Eos # (Auto) 0.2 (0.0-0.7) K/uL Baso # (Auto) 0.0 (0.0-0.1) K/uL Nucleated RBC % 0.0 /100WBC Nucleated RBCs # 0 K/uL Sodium 136 (136-145) mmol/L Potassium 3.9 (3.5-5.1) mmol/L Chloride 101 (98-107) mmol/L Carbon Dioxide 26.1 (21.0-32.0) mmol/L BUN 7 (7.0-18.0) mg/dL Creatinine 0.8 (0.6-1.0) mg/dL Est Cr Clr Drug Dosing 95.05 mL/min Estimated GFR (MDRD) > 60.0 ml/min Glucose 115 H (74-106) mg/dL Calcium 9.2 (8.5-10.1) mg/dL Total Bilirubin 0.4 (0.2-1.0) mg/dL AST 10 L (15-37) IU/L ALT 12 L (14-63) IU/L Alkaline Phosphatase 69 (46-116) U/L Total Protein 7.9 (6.4-8.2) g/dL Albumin 3.7 (3.4-5.0) g/dL Globulin 4.2 H (2.0-3.5) g/dL Albumin/Globulin Ratio 0.9 L (1.3-2.8) Result Diagrams: 03/30/18 19:25 03/30/18 19:25 Consult PN Assessment/Plan Procedures: Procedures ASSAY OF LACTIC ACID (01/20/18) ASSAY OF TROPONIN QUANT (06/16/16) ASSAY OF VANCOMYCIN (01/20/18) BLOOD CULTURE FOR BACTERIA (01/20/18) CHEST X-RAY 2VW FRONTAL&LATL (06/16/16) COMPLETE CBC W/AUTO DIFF WBC (01/20/18) COMPREHEN METABOLIC PANEL (01/20/18) CT ANGIOGRAPHY CHEST (06/16/16) CULTR BACTERIA EXCEPT BLOOD (01/20/18) CULTURE OTHR SPECIMN AEROBIC (01/20/18) ELECTROCARDIOGRAM TRACING (06/16/16) EMERGENCY DEPT VISIT (01/20/18) EMERGENCY DEPT VISIT (01/18/18) EMERGENCY DEPT VISIT (06/16/16) HYDRATE IV INFUSION ADD-ON (01/20/18) INCISION OF BREAST LESION (01/20/18) METABOLIC PANEL TOTAL CA (01/20/18) PROTHROMBIN TIME (06/16/16) ROUTINE VENIPUNCTURE (01/20/18) SMEAR GRAM STAIN (01/20/18) THER/PROPH/DIAG INJ SC/IM (01/18/18) THER/PROPH/DIAG IV INF INIT (01/20/18) TX/PRO/DX INJ NEW DRUG ADDON (01/20/18) TX/PRO/DX INJ SAME DRUG BOTTLING SUPERVISOR (01/20/18) ULTRASOUND BREAST COMPLETE (01/20/18) URINALYSIS AUTO W/SCOPE (01/20/18) URINE TEST (01/20/18) (1) Breast abscess of female SNOMED Code(s): 11843510, 132782377 Code(s): N61.1 - ABSCESS OF THE BREAST AND NIPPLE Current Visit: No Problem List Initiated/Reviewed/Updated: Yes Plan: Nicki Shepard is a 27 y/o F who has developed an abscess of the left breast in the setting of a past history of breast abscesses. The patient is currently hemodynamically stable, but will need incision and drainage for definite source control. Admit to hospital overnight. The patient is a known to Dr Mckeon, who will take over as primary attending in the morning. She received 1 g of vancomycin in the ED. Will give another 0.5 g in the am and narrow the antibiotic based on culture susceptibilities. <Bryan Osuna - Last Filed: 03/30/18 21:32> H&P History of Present Illness - General Admit Problem/Dx: Admission Diagnosis/Problem Admission Diagnosis/Problem Breast infection Exam - Vital Signs Vital Signs: Last Vital Signs Temp 99 F 03/30/18 20:54 Pulse 79 03/30/18 20:54 Resp 14 03/30/18 20:54 BP 95/48 L 03/30/18 20:54 Pulse Ox 100 03/30/18 20:54 - Patient Data Lab Results Last 24 hrs: Laboratory Results - last 24 hr 03/30/18 03/30/18 Range/Units 19:25 19:25 WBC 11.19 H (4.0-11.0) K/uL RBC 4.03 L (4.30-5.90) M/uL Hgb 12.9 (12.0-16.0) g/dL Hct 37.8 (36.0-46.0) % MCV 93.8 (80.0-98.0) fL MCH 32.0 (27.0-32.0) pg MCHC 34.1 (31.0-37.0) g/dL RDW Std Deviation 43.6 (28.0-62.0) fl RDW Coeff of Millicent 13 (11.0-15.0) % Plt Count 246 (150-400) K/uL MPV 10.40 (7.40-12.00) fL Neut % (Auto) 83.9 H (48.0-80.0) % Lymph % (Auto) 8.8 L (16.0-40.0) % [place] % (Auto) 5.0 (0.0-15.0) % Eos % (Auto) 2.1 (0.0-7.0) % Baso % (Auto) 0.2 (0.0-1.5) % Neut # (Auto) 9.4 H (1.4-5.7) K/uL Lymph # (Auto) 1.0 (0.6-2.4) K/uL [place] # (Auto) 0.6 (0.0-0.8) K/uL Eos # (Auto) 0.2 (0.0-0.7) K/uL Baso # (Auto) 0.0 (0.0-0.1) K/uL Nucleated RBC % 0.0 /100WBC Nucleated RBCs # 0 K/uL Sodium 136 (136-145) mmol/L Potassium 3.9 (3.5-5.1) mmol/L Chloride 101 (98-107) mmol/L Carbon Dioxide 26.1 (21.0-32.0) mmol/L BUN 7 (7.0-18.0) mg/dL Creatinine 0.8 (0.6-1.0) mg/dL Est Cr Clr Drug Dosing 95.05 mL/min Estimated GFR (MDRD) > 60.0 ml/min Glucose 115 H (74-106) mg/dL Calcium 9.2 (8.5-10.1) mg/dL Total Bilirubin 0.4 (0.2-1.0) mg/dL AST 10 L (15-37) IU/L ALT 12 L (14-63) IU/L Alkaline Phosphatase 69 (46-116) U/L Total Protein 7.9 (6.4-8.2) g/dL Albumin 3.7 (3.4-5.0) g/dL Globulin 4.2 H (2.0-3.5) g/dL Albumin/Globulin Ratio 0.9 L (1.3-2.8) Result Diagrams: 03/30/18 19:25 03/30/18 19:25 Consult PN Assessment/Plan Procedures: Procedures ASSAY OF LACTIC ACID (01/20/18) ASSAY OF TROPONIN QUANT (06/16/16) ASSAY OF VANCOMYCIN (01/20/18) BLOOD CULTURE FOR BACTERIA (01/20/18) CHEST X-RAY 2VW FRONTAL&LATL (06/16/16) COMPLETE CBC W/AUTO DIFF WBC (01/20/18) COMPREHEN METABOLIC PANEL (01/20/18) CT ANGIOGRAPHY CHEST (06/16/16) CULTR BACTERIA EXCEPT BLOOD (01/20/18) CULTURE OTHR SPECIMN AEROBIC (01/20/18) ELECTROCARDIOGRAM TRACING (06/16/16) EMERGENCY DEPT VISIT (01/20/18) EMERGENCY DEPT VISIT (01/18/18) EMERGENCY DEPT VISIT (06/16/16) HYDRATE IV INFUSION ADD-ON (01/20/18) INCISION OF BREAST LESION (01/20/18) METABOLIC PANEL TOTAL CA (01/20/18) PROTHROMBIN TIME (06/16/16) ROUTINE VENIPUNCTURE (01/20/18) SMEAR GRAM STAIN (01/20/18) THER/PROPH/DIAG INJ SC/IM (01/18/18) THER/PROPH/DIAG IV INF INIT (01/20/18) TX/PRO/DX INJ NEW DRUG ADDON (01/20/18) TX/PRO/DX INJ SAME DRUG BOTTLING SUPERVISOR (01/20/18) ULTRASOUND BREAST COMPLETE (01/20/18) URINALYSIS AUTO W/SCOPE (01/20/18) URINE TEST (01/20/18) (1) Breast abscess of female SNOMED Code(s): 55812552, [id number] Code(s): N61.1 - ABSCESS OF THE BREAST AND NIPPLE Priority: High Current Visit: Yes Problem List Initiated/Reviewed/Updated: Yes My Orders Last 24 Hours: My Active Orders 03/30/18 21:18 Patient Status [ADT] Routine Pulse Oximetry [RC] INTERMITTENT Up ad Ashley [RC] ASDIRECTED Vital Signs [RC] PER UNIT ROUTINE Antiembolic Hose [OM.PC] Routine Sequential Compression Device [OM.PC] Routine Resuscitation Status Routine 03/30/18 21:19 Acetaminophen/HYDROcodone [[place] 325-5 MG] 1 tab PO Q6H PRN Ondansetron [Zofran] 4 mg IVPUSH Q6H PRN 03/30/18 21:30 Lactated Ringers [Ringers, Lactated] 1,000 ml IV ASDIRECTED Lactated Ringers [Ringers, Lactated] 1,000 ml IV ASDIRECTED 03/30/18 Dinner Nothing Per Oral Diet [DIET] Regular Diet [DIET] 03/31/18 08:00 Vancomycin 500 mg Sodium Chloride 0.9% [Normal Saline] 100 ml IV Q12H Plan: [facility] She will be made NPO after midnight in anticipation of left breast I&D tomorrow. Dr. Mckeon is aware of the patient and will see her tomorrow. PO and parenteral analgesics have been ordered for [facility].
[2018-03-30] MEDS ORDERED: Lactated Ringers 1,000 ML IV SCH (21:30)
[2018-03-30] MEDS: Lactated Ringers 1,000 ML IV SCH (22:47)
[2018-03-31] MEDS ORDERED: diphenhydrAMINE 50 MG/ML SDV IVPUSH ONE (04:53)
[2018-03-31] MEDS: Morphine 2 MG/ML Syringe IVPUSH PRN ×2 (05:25→08:37)
[2018-03-31] MEDS: Lactated Ringers 1,000 ML IV SCH (08:38)
--- NOTE | 2018-03-31 08:42 | PCM.SURGPN ---
- General Info Date of Service: 03/31/18 Functional Status: Reports: Pain Controlled - Review of Systems General: Denies: Fever HEENT: Reports: No Symptoms Pulmonary: Reports: No Symptoms Cardiovascular: Reports: No Symptoms Gastrointestinal: Reports: No Symptoms Skin: Reports: Other (Pain and purulence under left nipple ) - Patient Data Vitals - Most Recent: Last Vital Signs Temp 35.9 C 03/31/18 04:00 Pulse 52 L 03/31/18 04:00 Resp 17 03/31/18 04:00 BP 97/57 L 03/31/18 04:00 Pulse Ox 99 03/31/18 04:00 Weight - Most Recent: 61 kg I&O - Last 24 Hours: Intake & Output 03/30/18 03/31/18 03/31/18 22:59 06:59 14:59 Intake Total 250 Output Total 900 Balance -650 Lab Results Last 24 Hrs: Laboratory Results - last 24 hr 03/30/18 03/30/18 03/31/18 Range/Units 19:25 19:25 07:40 WBC 11.19 H 9.41 (4.0-11.0) K/uL RBC 4.03 L 3.48 L (4.30-5.90) M/uL Hgb 12.9 11.0 L (12.0-16.0) g/dL Hct 37.8 33.1 L (36.0-46.0) % MCV 93.8 95.1 (80.0-98.0) fL MCH 32.0 31.6 (27.0-32.0) pg MCHC 34.1 33.2 (31.0-37.0) g/dL RDW Std Deviation 43.6 44.7 (28.0-62.0) fl RDW Coeff of Millicent 13 13 (11.0-15.0) % Plt Count 246 217 (150-400) K/uL MPV 10.40 10.10 (7.40-12.00) fL Neut % (Auto) 83.9 H 76.8 (48.0-80.0) % Lymph % (Auto) 8.8 L 14.3 L (16.0-40.0) % [place] % (Auto) 5.0 6.6 (0.0-15.0) % Eos % (Auto) 2.1 2.2 (0.0-7.0) % Baso % (Auto) 0.2 0.1 (0.0-1.5) % Neut # (Auto) 9.4 H 7.2 H (1.4-5.7) K/uL Lymph # (Auto) 1.0 1.4 (0.6-2.4) K/uL [place] # (Auto) 0.6 0.6 (0.0-0.8) K/uL Eos # (Auto) 0.2 0.2 (0.0-0.7) K/uL Baso # (Auto) 0.0 0.0 (0.0-0.1) K/uL Nucleated RBC % 0.0 0.0 /100WBC Nucleated RBCs # 0 0 K/uL Sodium 136 (136-145) mmol/L Potassium 3.9 (3.5-5.1) mmol/L Chloride 101 (98-107) mmol/L Carbon Dioxide 26.1 (21.0-32.0) mmol/L BUN 7 (7.0-18.0) mg/dL Creatinine 0.8 (0.6-1.0) mg/dL Est Cr Clr Drug Dosing 95.05 mL/min Estimated GFR (MDRD) > 60.0 ml/min Glucose 115 H (74-106) mg/dL Calcium 9.2 (8.5-10.1) mg/dL Total Bilirubin 0.4 (0.2-1.0) mg/dL AST 10 L (15-37) IU/L ALT 12 L (14-63) IU/L Alkaline Phosphatase 69 (46-116) U/L Total Protein 7.9 (6.4-8.2) g/dL Albumin 3.7 (3.4-5.0) g/dL Globulin 4.2 H (2.0-3.5) g/dL Albumin/Globulin Ratio 0.9 L (1.3-2.8) Med Orders - Current: Current Medications Diphenhydramine HCl (Benadryl) 50 mg IVPUSH Q6H PRN PRN Reason: Allergies Lactated Ringer's (Ringers, Lactated) 1,000 mls @ 125 mls/hr IV ASDIRECTED SHAMIKA Last Admin: 03/30/18 22:47 Dose: 125 mls/hr Vancomycin HCl 1 gm/ Sodium (Chloride) 250 mls @ 166 mls/hr IV Q8H SHAMIKA Last Admin: 03/31/18 05:14 Dose: 166 mls/hr Morphine Sulfate (Morphine) 1 - 3 mg IVPUSH Q1H PRN PRN Reason: Pain Last Admin: 03/31/18 05:25 Dose: 2 mg Ondansetron HCl (Zofran) 4 mg IVPUSH Q6H PRN PRN Reason: Nausea/Vomiting Sodium Chloride (Saline Flush) 10 ml FLUSH ASDIRECTED PRN PRN Reason: Keep Vein Open Sodium Chloride (Saline Flush) 2.5 ml FLUSH ASDIRECTED PRN PRN Reason: Keep Vein Open Vancomycin HCl (Pharmacy To Dose - Vancomycin) 1 dose .XX ASDIRECTED SHAMIKA Discontinued Medications Hydrocodone Bitart/Acetaminophen ([place] 325-5 Mg) 1 tab PO Q6H PRN PRN Reason: Pain (moderate 4-6) Last Admin: 03/30/18 23:45 Dose: 1 tab Diphenhydramine HCl (Benadryl) 50 mg IVPUSH ONETIME ONE Stop: 03/30/18 19:34 Last Admin: 03/30/18 19:41 Dose: 50 mg Diphenhydramine HCl (Benadryl) 50 mg IVPUSH ONETIME ONE Stop: 03/31/18 04:54 Last Admin: 03/31/18 05:11 Dose: 50 mg Hydromorphone HCl (Dilaudid) 1 mg IVPUSH ONETIME ONE Stop: 03/30/18 19:23 Last Admin: 03/30/18 19:34 Dose: 1 mg Hydromorphone HCl (Dilaudid) 1 mg IVPUSH ONETIME ONE Stop: 03/30/18 20:57 Last Admin: 03/30/18 21:03 Dose: 1 mg Hydroxyzine Pamoate (Vistaril) 25 mg PO ONETIME ONE Stop: 03/30/18 20:45 Last Admin: 03/30/18 20:53 Dose: 25 mg Sodium Chloride (Normal Saline) 1,000 mls @ 999 mls/hr IV STAT ONE Stop: 03/30/18 20:21 Last Admin: 03/30/18 19:34 Dose: 999 mls/hr Vancomycin HCl 1 gm/ Sodium (Chloride) 250 mls @ 250 mls/hr IV ONETIME ONE Stop: 03/30/18 20:20 Last Admin: 03/30/18 22:36 Dose: Not Given Vancomycin HCl 1 gm/ Sodium (Chloride) 250 mls @ 250 mls/hr IV ONETIME ONE Stop: 03/30/18 20:32 Last Admin: 03/30/18 19:42 Dose: 250 mls/hr Lactated Ringer's (Ringers, Lactated) 1,000 mls @ 125 mls/hr IV ASDIRECTED SHAMIKA Vancomycin HCl 500 mg/ Sodium (Chloride) 100 mls @ 100 mls/hr IV Q12H SHAMIKA - Exam General: Alert, Oriented Skin: Other (Swollen left nipple with central fluctuance and erythema ) - Problem List & Annotations (1) Breast abscess SNOMED Code(s): 99979849 Code(s): N61.1 - ABSCESS OF THE BREAST AND NIPPLE Status: Acute Current Visit: Yes (2) Cellulitis SNOMED Code(s): 211416594 Code(s): L03.90 - CELLULITIS, UNSPECIFIED Status: Acute Current Visit: No Qualifiers: Site of cellulitis: other site Qualified Code(s): L03.818 - Cellulitis of other sites - Problem List Review Problem List Initiated/Reviewed/Updated: Yes - My Orders Last 24 Hours: Active Orders 24 hr Category Date Time Status Patient Status [ADT] Routine ADT 03/30/18 21:18 Active Pulse Oximetry [RC] INTERMITTENT Care 03/30/18 21:18 Active Up ad Ashley [RC] ASDIRECTED Care 03/30/18 21:18 Active Vital Signs [RC] PER UNIT ROUTINE Care 03/30/18 21:18 Active Nothing Per Oral Diet [DIET] Diet 03/30/18 Dinner Active Breast Limited Lt [US] Stat Exams 03/30/18 19:22 Ordered VANCOMYCIN TROUGH [CHEM] Routine Lab 04/01/18 03:00 Ordered Lactated Ringers [Ringers, Lactated] 1,000 ml Med 03/30/18 21:30 Active IV ASDIRECTED Morphine Med 03/31/18 00:35 Active 1 - 3 mg IVPUSH Q1H PRN Ondansetron [Zofran] Med 03/30/18 21:19 Active 4 mg IVPUSH Q6H PRN Sodium Chloride 0.9% [Saline Flush] Med 03/30/18 19:22 Active 10 ml FLUSH ASDIRECTED PRN Sodium Chloride 0.9% [Saline Flush] Med 03/30/18 19:22 Active 2.5 ml FLUSH ASDIRECTED PRN Vancomycin Pharmacy to Dose [Pharmacy to Dose - Med 03/31/18 00:45 Active Vancomycin] 1 dose .XX ASDIRECTED Vancomycin [Vancocin] 1 gm Med 03/31/18 04:00 Active Sodium Chloride 0.9% [Normal Saline] 250 ml IV Q8H diphenhydrAMINE [Benadryl] Med 03/31/18 08:26 Active 50 mg IVPUSH Q6H PRN Antiembolic Hose [OM.PC] Routine Oth 03/30/18 21:18 Ordered Saline Lock Insert [OM.PC] Stat Oth 03/30/18 19:21 Ordered Sequential Compression Device [OM.PC] Routine Oth 03/30/18 21:18 Ordered Resuscitation Status Routine Resus Stat 03/30/18 21:18 Ordered Medication Orders Diphenhydramine HCl (Benadryl) 50 mg IVPUSH Q6H PRN PRN Reason: Allergies Lactated Ringer's (Ringers, Lactated) 1,000 mls @ 125 mls/hr IV ASDIRECTED SHAMIKA Last Admin: 03/30/18 22:47 Dose: 125 mls/hr Vancomycin HCl 1 gm/ Sodium (Chloride) 250 mls @ 166 mls/hr IV Q8H SHAMIKA Last Admin: 03/31/18 05:14 Dose: 166 mls/hr Morphine Sulfate (Morphine) 1 - 3 mg IVPUSH Q1H PRN PRN Reason: Pain Last Admin: 03/31/18 05:25 Dose: 2 mg Ondansetron HCl (Zofran) 4 mg IVPUSH Q6H PRN PRN Reason: Nausea/Vomiting Sodium Chloride (Saline Flush) 10 ml FLUSH ASDIRECTED PRN PRN Reason: Keep Vein Open Sodium Chloride (Saline Flush) 2.5 ml FLUSH ASDIRECTED PRN PRN Reason: Keep Vein Open Vancomycin HCl (Pharmacy To Dose - Vancomycin) 1 dose .XX ASDIRECTED SHAMIKA - Plan Plan (Free Text/Narrative):: Patient failed to follow up after last incision and drainage. The abscess on the left side is most likely due to the same organism that entered through her nipple ring. The fact that she smokes also puts her at increased risk of developing these. We discussed the need for an incision and drainage of the left breast abscess. The left breast US states that there is a hypervascular mass in the area however on physical exam she clearly has a fluctuant abscess that will need drainage. I will take biopsies of any mass I find. We discussed the procedure as well as the expected perioperative course. We discussed the need for dressing changes afterwards and the risks of surgery including bleeding , infection, or damage to tissue around the abscess. She verbalized understanding and wishes to proceed. She should continue to receive vancomycin and stay NPO.
[2018-03-31] MEDS: HYDROmorphone 1 MG/ML Syringe IVPUSH PRN ×4 (09:13→22:06)
--- NOTE | 2018-03-31 09:15 | PCM.HP ---
H&P History of Present Illness - General Date of Service: 03/31/18 Admit Problem/Dx: Admission Diagnosis/Problem Admission Diagnosis/Problem Breast infection Source of Information: Patient History Limitations: Reports: No Limitations - History of Present Illness Initial Comments - Free Text/Narative: Patient is a 27 year old female who presented with a right breast abscess several months ago. This was surgically drained. She did not remove her nipple piercing on the left side and now presents with an abscess there. This failed outpatient management. She was admitted by Dr. Osuna but I am assuming care since I did her previous surgery. left breast Pain Score (Numeric/FACES): 10 - Related Data Allergies/Adverse Reactions: Allergies Allergy/AdvReac Type Severity Reaction Status Date / Time amoxicillin Allergy Cannot Verified 03/30/18 19:11 Remember Penicillins Allergy Cannot Verified 03/30/18 19:11 Remember Home Medications: Home Meds Cephalexin [Keflex] 500 mg PO BID #20 capsule 03/28/18 [Rx] Past Medical History HEENT History: Reports: None Cardiovascular History: Reports: Other (See Below) Other Cardiovascular History: prolonged QT interval Respiratory History: Reports: None Gastrointestinal History: Reports: None Genitourinary History: Reports: None [employer]ER History: Reports: , Other (See Below) Other OB/BYN History: abscess to right breast (december 2017) Musculoskeletal History: Reports: None Neurological History: Reports: None Psychiatric History: Reports: Bipolar Endocrine/Metabolic History: Reports: None Hematologic History: Reports: Anemia Immunologic History: Reports: None Oncologic (Cancer) History: Reports: None Dermatologic History: Reports: Cellulitis - Infectious Disease History Infectious Disease History: Reports: None - Past Surgical History Head Surgeries/Procedures: Reports: None HEENT Surgical History: Reports: Tonsillectomy Cardiovascular Surgical History: Reports: None Respiratory Surgical History: Reports: None GI Surgical History: Reports: None Female Surgical History: Reports: None Endocrine Surgical History: Reports: None Neurological Surgical History: Reports: None Musculoskeletal Surgical History: Reports: None Social & Family History - Family History Family Medical History: Noncontributory Other Family History: The patient reports that she is a carrier for the long-QT syndrome gene - Tobacco Use Smoking Status *Q: Current Every Day Smoker Years of Tobacco use: 11 Packs/Tins Daily: 2 Second Hand Smoke Exposure: No - Caffeine Use Caffeine Use: Reports: Coffee - Alcohol Use Date of Last Drink: 02/27/18 - Recreational Drug Use Recreational Drug Use: No - Living Situation & Occupation Living situation: Reports: Single Occupation: Employed H&P Review of Systems - Review of Systems: Review Of Systems: ROS reveals no pertinent complaints other than HPI. Exam - Exam Exam: See Below - Vital Signs Vital Signs: Last Vital Signs Temp 37.0 C 03/31/18 08:00 Pulse 78 03/31/18 08:00 Resp 16 03/31/18 08:00 BP 96/55 L 03/31/18 08:00 Pulse Ox 98 03/31/18 08:00 Weight: 61 kg - Exam General: Alert, Oriented, Mild Distress HEENT: Conjunctiva Clear, Mucosa Moist & [place], Posterior Pharynx Clear Neck: Supple Lungs: Clear to Auscultation, Normal Respiratory Effort Cardiovascular: Regular Rate, Regular Rhythm GI/Abdominal Exam: Soft Back Exam: Normal Inspection Extremities: Normal Inspection Skin: Other (abscess on lateral aspect of left breast under the areola. ) - Patient Data Lab Results Last 24 hrs: Laboratory Results - last 24 hr 03/30/18 03/30/18 03/31/18 Range/Units 19:25 19:25 07:40 WBC 11.19 H 9.41 (4.0-11.0) K/uL RBC 4.03 L 3.48 L (4.30-5.90) M/uL Hgb 12.9 11.0 L (12.0-16.0) g/dL Hct 37.8 33.1 L (36.0-46.0) % MCV 93.8 95.1 (80.0-98.0) fL MCH 32.0 31.6 (27.0-32.0) pg MCHC 34.1 33.2 (31.0-37.0) g/dL RDW Std Deviation 43.6 44.7 (28.0-62.0) fl RDW Coeff of Millicent 13 13 (11.0-15.0) % Plt Count 246 217 (150-400) K/uL MPV 10.40 10.10 (7.40-12.00) fL Neut % (Auto) 83.9 H 76.8 (48.0-80.0) % Lymph % (Auto) 8.8 L 14.3 L (16.0-40.0) % [place] % (Auto) 5.0 6.6 (0.0-15.0) % Eos % (Auto) 2.1 2.2 (0.0-7.0) % Baso % (Auto) 0.2 0.1 (0.0-1.5) % Neut # (Auto) 9.4 H 7.2 H (1.4-5.7) K/uL Lymph # (Auto) 1.0 1.4 (0.6-2.4) K/uL [place] # (Auto) 0.6 0.6 (0.0-0.8) K/uL Eos # (Auto) 0.2 0.2 (0.0-0.7) K/uL Baso # (Auto) 0.0 0.0 (0.0-0.1) K/uL Nucleated RBC % 0.0 0.0 /100WBC Nucleated RBCs # 0 0 K/uL Sodium 136 (136-145) mmol/L Potassium 3.9 (3.5-5.1) mmol/L Chloride 101 (98-107) mmol/L Carbon Dioxide 26.1 (21.0-32.0) mmol/L BUN 7 (7.0-18.0) mg/dL Creatinine 0.8 (0.6-1.0) mg/dL Est Cr Clr Drug Dosing 95.05 mL/min Estimated GFR (MDRD) > 60.0 ml/min Glucose 115 H (74-106) mg/dL Calcium 9.2 (8.5-10.1) mg/dL Total Bilirubin 0.4 (0.2-1.0) mg/dL AST 10 L (15-37) IU/L ALT 12 L (14-63) IU/L Alkaline Phosphatase 69 (46-116) U/L Total Protein 7.9 (6.4-8.2) g/dL Albumin 3.7 (3.4-5.0) g/dL Globulin 4.2 H (2.0-3.5) g/dL Albumin/Globulin Ratio 0.9 L (1.3-2.8) Result Diagrams: 03/31/18 07:40 03/30/18 19:25 - Problem List (1) Breast abscess SNOMED Code(s): 86902468 ICD Code: N61.1 - ABSCESS OF THE BREAST AND NIPPLE Status: Acute Current Visit: Yes (2) Cellulitis SNOMED Code(s): 976228637 ICD Code: L03.90 - CELLULITIS, UNSPECIFIED Status: Acute Current Visit: No Qualifiers: Site of cellulitis: other site Qualified Code(s): L03.818 - Cellulitis of other sites Problem List Initiated/Reviewed/Updated: Yes Orders Last 24hrs: Active Orders 24 hr Category Date Time Status Patient Status [ADT] Routine ADT 03/30/18 21:18 Active Pulse Oximetry [RC] INTERMITTENT Care 03/30/18 21:18 Active Up ad Ashley [RC] ASDIRECTED Care 03/30/18 21:18 Active Vital Signs [RC] PER UNIT ROUTINE Care 03/30/18 21:18 Active Nothing Per Oral Diet [DIET] Diet 03/30/18 Dinner Active Breast Limited Lt [US] Stat Exams 03/30/18 19:22 Ordered VANCOMYCIN TROUGH [CHEM] Routine Lab 04/01/18 03:00 Ordered Acetaminophen/HYDROcodone [[place] 325-5 MG] Med 03/31/18 09:00 Active 1 - 2 tab PO Q4H PRN HYDROmorphone [Dilaudid] Med 03/31/18 08:58 Active 0.5 mg IVPUSH Q1H PRN Lactated Ringers [Ringers, Lactated] 1,000 ml Med 03/30/18 21:30 Active IV ASDIRECTED Ondansetron [Zofran] Med 03/30/18 21:19 Active 4 mg IVPUSH Q6H PRN Sodium Chloride 0.9% [Saline Flush] Med 03/30/18 19:22 Active 10 ml FLUSH ASDIRECTED PRN Sodium Chloride 0.9% [Saline Flush] Med 03/30/18 19:22 Active 2.5 ml FLUSH ASDIRECTED PRN Vancomycin Pharmacy to Dose [Pharmacy to Dose - Med 03/31/18 00:45 Active Vancomycin] 1 dose .XX ASDIRECTED Vancomycin [Vancocin] 1 gm Med 03/31/18 04:00 Active Sodium Chloride 0.9% [Normal Saline] 250 ml IV Q8H diphenhydrAMINE [Benadryl] Med 03/31/18 08:26 Active 50 mg IVPUSH Q6H PRN Antiembolic Hose [OM.PC] Routine Oth 03/30/18 21:18 Ordered Saline Lock Insert [OM.PC] Stat Oth 03/30/18 19:21 Ordered Sequential Compression Device [OM.PC] Routine Oth 03/30/18 21:18 Ordered Resuscitation Status Routine Resus Stat 03/30/18 21:18 Ordered Medication Orders Hydrocodone Bitart/Acetaminophen ([place] 325-5 Mg) 1 - 2 tab PO Q4H PRN PRN Reason: Pain Diphenhydramine HCl (Benadryl) 50 mg IVPUSH Q6H PRN PRN Reason: Allergies Hydromorphone HCl (Dilaudid) 0.5 mg IVPUSH Q1H PRN PRN Reason: Pain Lactated Ringer's (Ringers, Lactated) 1,000 mls @ 125 mls/hr IV ASDIRECTED [facility] Last Admin: 03/31/18 08:38 Dose: 125 mls/hr Infusion: 03/31/18 06:47 Dose: 125 mls/hr Admin: 03/30/18 22:47 Dose: 125 mls/hr Vancomycin HCl 1 gm/ Sodium (Chloride) 250 mls @ 166 mls/hr IV Q8H [facility] Last Admin: 03/31/18 05:14 Dose: 166 mls/hr Ondansetron HCl (Zofran) 4 mg IVPUSH Q6H PRN PRN Reason: Nausea/Vomiting Sodium Chloride (Saline Flush) 10 ml FLUSH ASDIRECTED PRN PRN Reason: Keep Vein Open Sodium Chloride (Saline Flush) 2.5 ml FLUSH ASDIRECTED PRN PRN Reason: Keep Vein Open Vancomycin HCl (Pharmacy To Dose - Vancomycin) 1 dose .XX ASDIRECTED [facility] Assessment/Plan Comment:: See previous consult for Dr. Osuna's admission plan. Will take to OR for incision and drainage. See my progress note today for further details.
--- NOTE | 2018-03-31 12:10 | PCM.PREANE ---
Preanesthetic Assessment - Procedure Proposed Procedure: L Breast Abcess - I&D - Anesthesia/Transfusion/Family Hx Anesthesia History: Prior Anesthesia Without Reaction Family History of Anesthesia Reaction: No Transfusion History: No Prior Transfusion(s) Intubation History: Unknown - Review of Systems General: Malaise, Other (Severe pain to L breast) Pulmonary: No Symptoms Cardiovascular: No Symptoms Gastrointestinal: Nausea (yesterday - states resolved today) Neurological: No Symptoms Other: Reports: None - Physical Assessment NPO Status Date: 03/31/18 NPO Status Time: 00:00 O2 Sat by Pulse Oximetry: 98 Respiratory Rate: 16 Blood Pressure: 96/55 Vital Signs: Last Vital Signs Temp 98.6 F 03/31/18 08:00 Pulse 78 03/31/18 08:00 Resp 16 03/31/18 08:00 BP 96/55 L 03/31/18 08:00 Pulse Ox 98 03/31/18 08:00 Height: 5 ft 5 in Weight: 134 lb 7.712 oz ASA Class: 2 Mental Status: Alert & Oriented x3 Airway Class: Mallampati = 2 Dentition: Reports: Normal Dentition Thyro-Mental Finger Breadths: 3 Mouth Opening Finger Breadths: 3 ROM/Head Extension: Full Lungs: Clear to Auscultation, Normal Respiratory Effort Cardiovascular: Regular Rate, Regular Rhythm - Lab Values: Laboratory Last Values WBC 9.41 K/uL (4.0-11.0) 03/31/18 07:40 RBC 3.48 M/uL (4.30-5.90) L 03/31/18 07:40 Hgb 11.0 g/dL (12.0-16.0) L 03/31/18 07:40 Hct 33.1 % (36.0-46.0) L 03/31/18 07:40 MCV 95.1 fL (80.0-98.0) 03/31/18 07:40 MCH 31.6 pg (27.0-32.0) 03/31/18 07:40 MCHC 33.2 g/dL (31.0-37.0) 03/31/18 07:40 RDW Std Deviation 44.7 fl (28.0-62.0) 03/31/18 07:40 RDW Coeff of Millicent 13 % (11.0-15.0) 03/31/18 07:40 Plt Count 217 K/uL (150-400) 03/31/18 07:40 MPV 10.10 fL (7.40-12.00) 03/31/18 07:40 Neut % (Auto) 76.8 % (48.0-80.0) 03/31/18 07:40 Lymph % (Auto) 14.3 % (16.0-40.0) L 03/31/18 07:40 [place] % (Auto) 6.6 % (0.0-15.0) 03/31/18 07:40 Eos % (Auto) 2.2 % (0.0-7.0) 03/31/18 07:40 Baso % (Auto) 0.1 % (0.0-1.5) 03/31/18 07:40 Neut # (Auto) 7.2 K/uL (1.4-5.7) H 03/31/18 07:40 Lymph # (Auto) 1.4 K/uL (0.6-2.4) 03/31/18 07:40 [place] # (Auto) 0.6 K/uL (0.0-0.8) 03/31/18 07:40 Eos # (Auto) 0.2 K/uL (0.0-0.7) 03/31/18 07:40 Baso # (Auto) 0.0 K/uL (0.0-0.1) 03/31/18 07:40 Nucleated RBC % 0.0 /100WBC 03/31/18 07:40 Nucleated RBCs # 0 K/uL 03/31/18 07:40 Sodium 136 mmol/L (136-145) 03/30/18 19:25 Potassium 3.9 mmol/L (3.5-5.1) 03/30/18 19:25 Chloride 101 mmol/L (98-107) 03/30/18 19:25 Carbon Dioxide 26.1 mmol/L (21.0-32.0) 03/30/18 19:25 BUN 7 mg/dL (7.0-18.0) 03/30/18 19:25 Creatinine 0.8 mg/dL (0.6-1.0) 03/30/18 19:25 Est Cr Clr Drug Dosing 95.05 mL/min 03/30/18 19:25 Estimated GFR (MDRD) > 60.0 ml/min 03/30/18 19:25 Glucose 115 mg/dL (74-106) H 03/30/18 19:25 Calcium 9.2 mg/dL (8.5-10.1) 03/30/18 19:25 Total Bilirubin 0.4 mg/dL (0.2-1.0) 03/30/18 19:25 AST 10 IU/L (15-37) L 03/30/18 19:25 ALT 12 IU/L (14-63) L 03/30/18 19:25 Alkaline Phosphatase 69 U/L (46-116) 03/30/18 19:25 Total Protein 7.9 g/dL (6.4-8.2) 03/30/18 19:25 Albumin 3.7 g/dL (3.4-5.0) 03/30/18 19:25 Globulin 4.2 g/dL (2.0-3.5) H 03/30/18 19:25 Albumin/Globulin Ratio 0.9 (1.3-2.8) L 03/30/18 19:25 - Allergies Allergies/Adverse Reactions: Allergies Allergy/AdvReac Type Severity Reaction Status Date / Time amoxicillin Allergy Cannot Verified 03/30/18 19:11 Remember Penicillins Allergy Cannot Verified 03/30/18 19:11 Remember - Blood Blood Available: No Product(s) Available: None - Anesthesia Plan Free Text/Narrative:: LMA - GA - Acknowledgements Anesthesia Type Planned: General Anesthesia Pt an Appropriate Candidate for the Planned Anesthesia: Yes Alternatives and Risks of Anesthesia Discussed w Pt/Guardian: Yes Pt/Guardian Understands and Agrees with Anesthesia Plan: Yes PreAnesthesia Questionnaire HEENT History: Reports: None Cardiovascular History: Reports: Other (See Below) Other Cardiovascular History: prolonged QT interval - hx of Respiratory History: Reports: None Gastrointestinal History: Reports: None Genitourinary History: Reports: None 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: , 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 (See Below) Other OB/BYN History: abscess to right breast (december 2017) Musculoskeletal History: Reports: None Neurological History: Reports: None Psychiatric History: Reports: Bipolar Endocrine/Metabolic History: Reports: None Hematologic History: Reports: Anemia Immunologic History: Reports: None Oncologic (Cancer) History: Reports: None Dermatologic History: Reports: Cellulitis - Infectious Disease History Infectious Disease History: Reports: None - Past Surgical History Head Surgeries/Procedures: Reports: None HEENT Surgical History: Reports: Tonsillectomy Cardiovascular Surgical History: Reports: None Respiratory Surgical History: Reports: None GI Surgical History: Reports: None Female Surgical History: Reports: None Endocrine Surgical History: Reports: None Neurological Surgical History: Reports: None Musculoskeletal Surgical History: Reports: None - SUBSTANCE USE Smoking Status *Q: Current Every Day Smoker Tobacco Use Within Last Twelve Months: Cigarettes Second Hand Smoke Exposure: No Date of Last Drink: 02/27/18 Recreational Drug Use History: No - HOME MEDS Home Medications: Home Meds Cephalexin [Keflex] 500 mg PO BID #20 capsule 03/28/18 [Rx] - CURRENT (IN HOUSE) MEDS Current Meds: Current Medications Hydrocodone Bitart/Acetaminophen ([place] 325-5 Mg) 1 - 2 tab PO Q4H PRN PRN Reason: Pain Diphenhydramine HCl (Benadryl) 50 mg IVPUSH Q6H PRN PRN Reason: Allergies Hydromorphone HCl (Dilaudid) 0.5 mg IVPUSH Q1H PRN PRN Reason: Pain Last Admin: 03/31/18 09:13 Dose: 0.5 mg Lactated Ringer's (Ringers, Lactated) 1,000 mls @ 125 mls/hr IV ASDIRECTED SHAMIKA Last Admin: 03/31/18 08:38 Dose: 125 mls/hr Vancomycin HCl 1 gm/ Sodium (Chloride) 250 mls @ 166 mls/hr IV Q8H [facility]IKA Last Admin: 03/31/18 05:14 Dose: 166 mls/hr Ondansetron HCl (Zofran) 4 mg IVPUSH Q6H PRN PRN Reason: Nausea/Vomiting Sodium Chloride (Saline Flush) 10 ml FLUSH ASDIRECTED PRN PRN Reason: Keep Vein Open Sodium Chloride (Saline Flush) 2.5 ml FLUSH ASDIRECTED PRN PRN Reason: Keep Vein Open Last Admin: 03/31/18 09:15 Dose: 2.5 ml Vancomycin HCl (Pharmacy To Dose - Vancomycin) 1 dose .XX ASDIRECTED [facility] Discontinued Medications Hydrocodone Bitart/Acetaminophen ([place] 325-5 Mg) 1 tab PO Q6H PRN PRN Reason: Pain (moderate 4-6) Last Admin: 03/30/18 23:45 Dose: 1 tab Diphenhydramine HCl (Benadryl) 50 mg IVPUSH ONETIME ONE Stop: 03/30/18 19:34 Last Admin: 03/30/18 19:41 Dose: 50 mg Diphenhydramine HCl (Benadryl) 50 mg IVPUSH ONETIME ONE Stop: 03/31/18 04:54 Last Admin: 03/31/18 05:11 Dose: 50 mg Hydromorphone HCl (Dilaudid) 1 mg IVPUSH ONETIME ONE Stop: 03/30/18 19:23 Last Admin: 03/30/18 19:34 Dose: 1 mg Hydromorphone HCl (Dilaudid) 1 mg IVPUSH ONETIME ONE Stop: 03/30/18 20:57 Last Admin: 03/30/18 21:03 Dose: 1 mg Hydroxyzine Pamoate (Vistaril) 25 mg PO ONETIME ONE Stop: 03/30/18 20:45 Last Admin: 03/30/18 20:53 Dose: 25 mg Sodium Chloride (Normal Saline) 1,000 mls @ 999 mls/hr IV STAT ONE Stop: 03/30/18 20:21 Last Admin: 03/30/18 19:34 Dose: 999 mls/hr Vancomycin HCl 1 gm/ Sodium (Chloride) 250 mls @ 250 mls/hr IV ONETIME ONE Stop: 03/30/18 20:20 Last Admin: 03/30/18 22:36 Dose: Not Given Vancomycin HCl 1 gm/ Sodium (Chloride) 250 mls @ 250 mls/hr IV ONETIME ONE Stop: 03/30/18 20:32 Last Admin: 03/30/18 19:42 Dose: 250 mls/hr Lactated Ringer's (Ringers, Lactated) 1,000 mls @ 125 mls/hr IV ASDIRECTED [facility] Vancomycin HCl 500 mg/ Sodium (Chloride) 100 mls @ 100 mls/hr IV Q12H [facility] Morphine Sulfate (Morphine) 1 - 3 mg IVPUSH Q1H PRN PRN Reason: Pain Last Admin: 03/31/18 08:37 Dose: 2 mg
[2018-03-31] MEDS: diphenhydrAMINE 50 MG/ML SDV IVPUSH PRN ×2 (12:14→20:05)
[2018-03-31] MEDS ORDERED: Ondansetron 4 MG/2 ML SDV ONE (13:27)
[2018-03-31] MEDS ORDERED: Lidocaine 2% 5 ML SDV ONE (13:27)
[2018-03-31] MEDS ORDERED: HYDROmorphone 2 MG/ML SDV ONE (13:27)
[2018-03-31] MEDS ORDERED: Midazolam 1 MG/ML 2 ML SDV ONE (13:27)
[2018-03-31] MEDS ORDERED: Propofol 200 MG/20 ML SDV ONE (13:27)
[2018-03-31] MEDS ORDERED: fentaNYL 250 MCG/5 ML SDV ONE (13:28)
[2018-03-31] MEDS ORDERED: Bupivacaine 0.5% 10 ML SDV ONE (13:44)
[2018-03-31] MEDS ORDERED: Ketorolac 30 MG/ML SDV ONE (14:16)
--- NOTE | 2018-03-31 14:28 | PCM.OPNOTE ---
- General Post-Op/Procedure Note Date of Surgery/Procedure: 03/31/18 Operative Procedure(s): Incision and drainage left breast abscess Findings: 3 x 2 x 2 cm left subareolar breast abscess Pre Op Diagnosis: breast abscess Post-Op Diagnosis: same Anesthesia Technique: MAC Primary Surgeon: Kortney Mckeon EBL in mLs: 5 Condition: Good Free Text/Narrative:: Intake & Output 03/30/18 03/31/18 03/31/18 22:59 06:59 14:59 Intake Total 250 Output Total 900 Balance -650
--- NOTE | 2018-03-31 14:56 | PCM.POSTAN ---
POST ANESTHESIA ASSESSMENT - MENTAL STATUS Mental Status: Alert, Oriented - RESPIRATORY Respiratory Status: Respiratory Rate WNL, Airway Patent, O2 Saturation Stable - CARDIOVASCULAR CV Status: Pulse Rate WNL, Blood Pressure Stable - GASTROINTESTINAL GI Status: No Symptoms - PAIN Pain Score: 0 - POST OP HYDRATION Hydration Status: Adequate & Stable - OBSERVATIONS Free Text/Narrative:: Pt denies any pain postop. No nausea or vomiting. VSS. Stable for discharge to phase II recovery on Med/Surg.
--- NOTE | 2018-03-31 15:31 | PCM48HPAN ---
Post Anesthesia Note - EVALUATION WITHIN 48HRS OF ANESTHETIC Vital Signs in Normal Range: Yes Patient Participated in Evaluation: Yes Respiratory Function Stable: Yes Airway Patent: Yes Cardiovascular Function Stable: Yes Hydration Status Stable: Yes Pain Control Satisfactory: Yes Nausea and Vomiting Control Satisfactory: Yes Mental Status Recovered: Yes Resp Rate: 8 Blood Pressure: 96/55 - COMMENTS/OBSERVATIONS Free Text/Narrative:: Pt doing well postop. Pain well controlled and no nausea.
[2018-03-31] MEDS: Acetaminophen/HYDROcodone 325-5 MG Tab PO PRN (20:04)
[2018-04-01] MEDS: Acetaminophen/HYDROcodone 325-5 MG Tab PO PRN ×3 (00:14→08:37)
[2018-04-01] MEDS: diphenhydrAMINE 50 MG/ML SDV IVPUSH PRN (03:51)
[2018-04-01] MEDS: HYDROmorphone 1 MG/ML Syringe IVPUSH PRN (06:03)
[2018-04-01 08:26] VITALS: BP 102/50
[2018-04-01] MEDS ORDERED: Clindamycin HCl 150 MG Cap PO SCH (09:15)
[2018-04-01] MEDS ORDERED: metroNIDAZOLE 250 MG Tab PO SCH (09:15)
--- NOTE | 2018-04-01 09:17 | PCM.DCSUM1 ---
Discharge Summary - Hospital Course Free Text/Narrative:: Patient presented to the ER with worsening pain, swelling, and redness of the left breast. She was seen in January with a subareolar infection secondary to a nipple piercing. This caused cellulitis and a large abscess that required surgical drainage. She left the left nipple ring in place. This started to show signs of infection like the other side, so she removed the left nipple ring. She was seen several days before in the ER and given Keflex. This did not work. On representation, her WBC was 11K. US showed a hypoechoic area under the areola. There was some question to whether this was a mass or not. On physical exam she had a fluctuant area under the areola associated with cellulitis and pain. Given its presentation on clinical exam, it was clearly an abscess. She was admitted to the floor and IV vancomycin was given. The next day her cellulitis was improved and her WBC was down to normal. The decision was made to take her to the OR for I and D. She was found to have a 3 x 2 x 2 cm abscess under the left areola. There was no mass palpated in the area. The wound was packed and she was brought back to the floor. She did well post operatively. Her dressings were changed at bedside. The inflammation around the wound has greatly improved and the tissue inside the wound appeared healthy. She was switched to clindamycin and flagyl since her preliminary wound cultures show gram positive cocci and rods, as well as gram negative rods. She is cleared for discharge. - Discharge Data Discharge Date: 04/01/18 Discharge Disposition: Home, Self-Care 01 Condition: Good - Discharge Diagnosis/Problem(s) (1) Breast abscess SNOMED Code(s): 76101910 ICD Code: N61.1 - ABSCESS OF THE BREAST AND NIPPLE Status: Acute Current Visit: Yes (2) Cellulitis SNOMED Code(s): 248204131 ICD Code: L03.90 - CELLULITIS, UNSPECIFIED Status: Acute Current Visit: No Qualifiers: Site of cellulitis: other site Qualified Code(s): L03.818 - Cellulitis of other sites - Patient Summary/Data Operative Procedure(s) Performed: Incision and drainage left breast abscess - Patient Instructions Diet: Regular Diet as Tolerated Activity: Rest and Relax Today Driving: Do Not Drive (While taking narcotic medications ) Showering/Bathing: November Shower Notify Provider of: Fever, Increased Pain, Swelling and Redness (worsening), Drainage (worsening ) - Discharge Plan *PRESCRIPTION DRUG MONITORING PROGRAM REVIEWED*: Yes (website down) *COPY OF PRESCRIPTION DRUG MONITORING REPORT IN PATIENT ADRIANNA: Yes (website down howevere) Prescriptions/Med Rec: Clindamycin HCl [Cleocin] 450 mg PO Q6H #20 cap metroNIDAZOLE 250 mg PO Q6H #20 tablet Home Medications: Home Meds Clindamycin HCl [Cleocin] 450 mg PO Q6H #20 cap 04/01/18 [Rx] metroNIDAZOLE 250 mg PO Q6H #20 tablet 04/01/18 [Rx] Patient Handouts: Incision and Drainage, Care After Referrals: Kortney Mckeon MD [Physician] - 04/09/18 1:00 pm - General Info Functional Status: Reports: Pain Controlled, Tolerating Diet, Ambulating, Urinating - Review of Systems General: Reports: No Symptoms Pulmonary: Reports: No Symptoms Cardiovascular: Reports: No Symptoms Gastrointestinal: Reports: No Symptoms - Patient Data Vitals - Most Recent: Last Vital Signs Temp 37.2 C 04/01/18 08:24 Pulse 66 04/01/18 03:44 Resp 14 04/01/18 08:24 BP 102/50 L 04/01/18 08:24 Pulse Ox 97 04/01/18 08:24 Weight - Most Recent: 61 kg I&O - Last 24 hours: Intake & Output 03/31/18 04/01/18 04/01/18 22:59 06:59 14:59 Intake Total 1250 2500 Output Total 1500 Balance 1250 1000 Lab Results - Last 24 hrs: Laboratory Results - last 24 hr 03/31/18 04/01/18 04/01/18 Range/Units 12:50 03:00 03:00 WBC 6.98 (4.0-11.0) K/uL RBC 3.48 L (4.30-5.90) M/uL Hgb 10.9 L (12.0-16.0) g/dL Hct 33.2 L (36.0-46.0) % MCV 95.4 (80.0-98.0) fL MCH 31.3 (27.0-32.0) pg MCHC 32.8 (31.0-37.0) g/dL RDW Std Deviation 44.8 (28.0-62.0) fl RDW Coeff of Millicent 13 (11.0-15.0) % Plt Count 212 (150-400) K/uL MPV 10.40 (7.40-12.00) fL Nucleated RBC % 0.0 /100WBC Nucleated RBCs # 0 K/uL Urine HCG, Qual NEGATIVE (NEGATIVE) Vancomycin Trough 11.8 H (5.0-10.0) ug/mL MELINDA Results - Last 24 hrs: Microbiology 03/31/18 14:10 Gram Stain - Preliminary Breast, Left Med Orders - Current: Current Medications Hydrocodone Bitart/Acetaminophen (Crystal 325-5 Mg) 1 - 2 tab PO Q4H PRN PRN Reason: Pain Last Admin: 04/01/18 08:37 Dose: 2 tab Clindamycin HCl (Cleocin) 450 mg PO Q6H SHAMIKA Diphenhydramine HCl (Benadryl) 50 mg IVPUSH Q6H PRN PRN Reason: Allergies Last Admin: 04/01/18 03:51 Dose: 50 mg Hydromorphone HCl (Dilaudid) 0.5 mg IVPUSH Q1H PRN PRN Reason: Pain Last Admin: 04/01/18 06:03 Dose: 0.5 mg Metronidazole (Metronidazole) 250 mg PO Q6H SHAMIKA Ondansetron HCl (Zofran) 4 mg IVPUSH Q6H PRN PRN Reason: Nausea/Vomiting Sodium Chloride (Saline Flush) 10 ml FLUSH ASDIRECTED PRN PRN Reason: Keep Vein Open Sodium Chloride (Saline Flush) 2.5 ml FLUSH ASDIRECTED PRN PRN Reason: Keep Vein Open Last Admin: 03/31/18 09:15 Dose: 2.5 ml Discontinued Medications Hydrocodone Bitart/Acetaminophen (Crystal 325-5 Mg) 1 tab PO Q6H PRN PRN Reason: Pain (moderate 4-6) Last Admin: 03/30/18 23:45 Dose: 1 tab Bupivacaine HCl (Sensorcaine-Mpf 0.5%) Confirm Administered Dose 10 ml .ROUTE .STK-MED ONE Stop: 03/31/18 13:45 Diphenhydramine HCl (Benadryl) 50 mg IVPUSH ONETIME ONE Stop: 03/30/18 19:34 Last Admin: 03/30/18 19:41 Dose: 50 mg Diphenhydramine HCl (Benadryl) 50 mg IVPUSH ONETIME ONE Stop: 03/31/18 04:54 Last Admin: 03/31/18 05:11 Dose: 50 mg Fentanyl (Sublimaze) Confirm Administered Dose 250 mcg .ROUTE .STK-MED ONE Stop: 03/31/18 13:29 Hydromorphone HCl (Dilaudid) 1 mg IVPUSH ONETIME ONE Stop: 03/30/18 19:23 Last Admin: 03/30/18 19:34 Dose: 1 mg Hydromorphone HCl (Dilaudid) 1 mg IVPUSH ONETIME ONE Stop: 03/30/18 20:57 Last Admin: 03/30/18 21:03 Dose: 1 mg Hydromorphone HCl (Dilaudid) Confirm Administered Dose 2 mg .ROUTE .STK-MED ONE Stop: 03/31/18 13:28 Hydroxyzine Pamoate (Vistaril) 25 mg PO ONETIME ONE Stop: 03/30/18 20:45 Last Admin: 03/30/18 20:53 Dose: 25 mg Sodium Chloride (Normal Saline) 1,000 mls @ 999 mls/hr IV STAT ONE Stop: 03/30/18 20:21 Last Admin: 03/30/18 19:34 Dose: 999 mls/hr Vancomycin HCl 1 gm/ Sodium (Chloride) 250 mls @ 250 mls/hr IV ONETIME ONE Stop: 03/30/18 20:20 Last Admin: 03/30/18 22:36 Dose: Not Given Vancomycin HCl 1 gm/ Sodium (Chloride) 250 mls @ 250 mls/hr IV ONETIME ONE Stop: 03/30/18 20:32 Last Admin: 03/30/18 19:42 Dose: 250 mls/hr Lactated Ringer's (Ringers, Lactated) 1,000 mls @ 125 mls/hr IV ASDIRECTED SHAMIKA Lactated Ringer's (Ringers, Lactated) 1,000 mls @ 125 mls/hr IV ASDIRECTED SHAMIKA Last Admin: 03/31/18 08:38 Dose: 125 mls/hr Vancomycin HCl 500 mg/ Sodium (Chloride) 100 mls @ 100 mls/hr IV Q12H SHAMIKA Vancomycin HCl 1 gm/ Sodium (Chloride) 250 mls @ 166 mls/hr IV Q8H [facility] Last Admin: 04/01/18 03:51 Dose: 166 mls/hr Ketorolac Tromethamine (Toradol) Confirm Administered Dose 30 mg .ROUTE .STK- MED ONE Stop: 03/31/18 14:17 Lidocaine (Xylocaine-Mpf 2%) Confirm Administered Dose 5 ml .ROUTE .STK-MED ONE Stop: 03/31/18 13:28 Midazolam HCl (Versed 1 Mg/Ml) Confirm Administered Dose 2 mg .ROUTE .STK-MED ONE Stop: 03/31/18 13:28 Morphine Sulfate (Morphine) 1 - 3 mg IVPUSH Q1H PRN PRN Reason: Pain Last Admin: 03/31/18 08:37 Dose: 2 mg Ondansetron HCl (Zofran) Confirm Administered Dose 4 mg .ROUTE .STK-MED ONE Stop: 03/31/18 13:28 Propofol (Diprivan 20 Ml) Confirm Administered Dose 200 mg .ROUTE .STK-MED ONE Stop: 03/31/18 13:28 Vancomycin HCl (Pharmacy To Dose - Vancomycin) 1 dose .XX ASDIRECTED [facility] - Exam General: Reports: Alert, Oriented, Cooperative HEENT: Reports: Pupils Equal Lungs: Reports: Normal Respiratory Effort Cardiovascular: Reports: Regular Rate Skin: Reports: Warm, Dry, Intact Wound/Incisions: Reports: Healing Well Neurological: Reports: No New Focal Deficit Psy/Mental Status: Reports: Alert, Normal Affect
--- NOTE | 2018-04-01 10:48 | OR ---
SURGEON: TREVOR SAUCEDO MD DATE OF PROCEDURE: 03/30/2018 PREOPERATIVE DIAGNOSIS: Left breast abscess. POSTOPERATIVE DIAGNOSIS: Left breast abscess. PROCEDURE PERFORMED: Incision and drainage of left breast abscess. ANESTHESIA: General LMA. FLUIDS: See anesthesia record. EBL: 5 mL. FINDINGS: A 3 x 2 x 2 cm left breast subareolar abscess. COMPLICATIONS: None. INDICATIONS: The patient is a 27-year-old female, who presents with a left breast abscess. She had a previous right breast abscess due to a nipple piercing that was treated with incision and drainage in January. The patient kept her left nipple ring and developed a similar infection. She had a preoperative ultrasound that showed a 3 cm subareolar abscess. She was admitted to the hospital and given IV antibiotics. Given its size and location, the decision was made to perform an incision and drainage of this abscess. The patient and I discussed the procedure as well as the expected perioperative course. I explained the risks including bleeding, infection, or damage to surrounding structures. The patient verbalized understanding and wishes to proceed. PROCEDURE IN DETAIL: The patient was brought into the OR and, placed on the OR table in supine position. A time-out was completed verifying the patient's name, age, date of , allergies, and procedure to be performed. General LMA anesthesia was induced. The left chest was prepped and draped in usual standard fashion. I anesthetized the left areolar border with 0.5% Marcaine plain. A #15 blade was then used to make a semilunar incision along the left lateral border. I immediately encountered a large amount of thick white pus. This was cultured. It was sent for anaerobic and aerobic cultures as well as Gram stain. I then explored the wound. All the purulence was expressed and I broke up any loculations with a hemostat. I then copiously irrigated the wound with normal saline. The abscess pocket tracked underneath the breast up to the areola. The wound measured 3 cm x 2 cm x 2 cm. A 1 inch iodoform packing was then placed inside the wound. It was packed tightly to achieve hemostasis. I then covered the wound with dry 4 x 4 dressings and secured these in place with tape. The patient tolerated the procedure well and was transferred to the PACU in stable condition. AG PRESCOTT /[id number] MTDD
--- NOTE | 2018-04-01 13:38 | US ---
EXAMINATION: Left breast ultrasound HISTORY: Rule out abscess COMPARISON: Right breast dated 01/20/2018 TECHNIQUE: Grayscale and color Doppler imaging of provided in the periareolar region. The study was p resented at a later date with no radiologist on site. FINDINGS: Within the periareolar region there is a hypoechoic collection measuring roughly 2.2 cm. Th is is highly vascular within and surrounding. There is no definite fluid collection however there is no significant shadowing, and the posterior acoustic enhancement suggests a component of fluid. There is overlying skin thickening also noted. IMPRESSION: 1. Abnormal hypoechoic collection within the subareolar region of the left breast. Given the appearan ce this may represent a inflammatory or infectious process without a definitive abscess. A neoplastic process is not excluded and follow-up with possible biopsy may be beneficial.
== END 2018-04-01 10:42 | disposition home or self-care (01) ==
LOC: MW.ED 18:59 → MW.MS 21:18
PROVIDERS: ADMIT Surgery; ATTEND Surgery
DX: N61.1 Abscess of the breast and nipple (principal); B96.89 Other specified bacterial agents as the cause of diseases classified elsewhere; L03.818 Cellulitis of other sites; F17.210 Nicotine dependence, cigarettes, uncomplicated; Z88.0 Allergy status to penicillin
CPT/HCPCS: 10060; 36415; 76642; 80053; 80202; 81025; 85025; 85027; 87070; 87075; 87205; 96361; 96365; 96375; 96376; 99285; A9270; G0378; J1170; J1200; J1885; J2250; J2270; J2405; J2704; J3010; J3370; J3490; J7040; J7050; J7120; 00400; 87077

== ENCOUNTER 2018-10-26 00:30 | Inpatient (IN) | payer MEDICAID ==
[2018-10-26] MEDS ORDERED: Oxytocin/0.9 % Sodium Chloride 30 UNIT/500 ML BAG ONE (00:37)
[2018-10-26] MEDS ORDERED: Sodium Chloride 0.9% 2.5 ML Syringe FLUSH PRN (00:49)
[2018-10-26] MEDS ORDERED: Tranexamic Acid 1,000 MG in Sodium Chloride 0.9% 100 ML IV PRN (00:49)
[2018-10-26] MEDS ORDERED: Carboprost Tromethamine 250 MCG/1 ML Amp IM PRN (00:49)
[2018-10-26] MEDS ORDERED: Butorphanol 1 MG/ML SDV IVPUSH PRN (00:49)
[2018-10-26] MEDS ORDERED: Nalbuphine 10 MG/1 ML Vial IVPUSH PRN (00:49)
[2018-10-26] MEDS ORDERED: Sodium Chloride 0.9% 10 ML SDV IV PRN (00:49)
[2018-10-26] MEDS ORDERED: Water For Irrigation,Sterile 1,000 ML Container IRR PRN (00:49)
[2018-10-26] MEDS ORDERED: Methylergonovine 0.2 MG/1 ML Amp IM PRN (00:49)
[2018-10-26] MEDS ORDERED: Lidocaine 1% 50 ML MDV INJECT PRN (00:49)
[2018-10-26] MEDS ORDERED: Sodium Chloride 0.9% 10 ML Syringe FLUSH PRN (00:49)
[2018-10-26] MEDS ORDERED: Misoprostol 200 MCG Tab PO PRN (00:49)
[2018-10-26] MEDS ORDERED: Docusate Sodium 100 MG Cap PO PRN (00:53)
[2018-10-26] MEDS ORDERED: Acetaminophen 500 MG Tab PO PRN ×2 (00:53)
[2018-10-26] MEDS ORDERED: oxyCODONE 5 MG Tab PO PRN (00:53)
[2018-10-26] MEDS ORDERED: Bisacodyl 10 MG Supp RECTAL PRN (00:53)
[2018-10-26] MEDS ORDERED: Ibuprofen 800 MG Tab PO PRN (00:53)
[2018-10-26] MEDS ORDERED: Witch Hazel Medicated Pads 40/Jar TOP PRN (00:53)
[2018-10-26] MEDS ORDERED: Ibuprofen 400 MG Tab PO PRN (00:53)
[2018-10-26] MEDS ORDERED: Benzocaine/Menthol 20%-0.5% Spray 78 GM Cannister TOP PRN (00:53)
[2018-10-26] MEDS ORDERED: Lanolin 100% Cream 7 GM Tube TOP PRN (00:53)
[2018-10-26] MEDS ORDERED: Lactated Ringers 1,000 ML IV SCH (01:00)
[2018-10-26] MEDS ORDERED: Oxytocin/0.9 % Sodium Chloride 30 UNIT/500 ML BAG IV SCH (01:00)
[2018-10-26 10:15] VITALS: BP 110/55
--- NOTE | 2018-10-27 08:02 | CONS ---
DATE OF CONSULTATION: 10/26/2018 DATE OF : 1990 PRIMARY CARE PHYSICIAN: None PCP Ms. Caceres is 28-year-old patient. She is para 4-0-0-4. All of her delivered by normal spontaneous vaginal delivery. The last one is two years ago. She presented originally to the emergency room, and at that time, the patient has miscarried 16 week fetus stillborn. According to the patient, her last period was last month, she has regular periods, and she is unaware how far she is . The patient was transferred to Labor and Delivery for observation and management. She, later on, passed the placenta on her own without any problem, and her bleeding stopped. The patient is kept for observation for few hours to make sure that she is not bleeding and to check her Rh status. The patient was found to be Rh-negative, and she will receive her RhoGAM. Per examination, her vital signs stable. There is minimum vaginal bleeding. She had a complete lower abdominal examination that is essentially is normal. She had a complete miscarriage. The patient is ambulatory. She had no fever, no problem, and her history and physical is essentially within normal limits. The patient would be sent home after she receive her RhoGAM injection. She was given the post miscarriage instructions, and she was advised to come to the office in 2-3 weeks for checkup. SANCHO PRESCOTT /[id number]
== END 2018-10-26 14:10 | disposition home or self-care (01) | DRG 806 ==
LOC: MW.OBCHECK 00:30 → MW.OB 00:32 → MW.OBCHECK 00:40 → MW.OB 00:40 → OBSVTOIN 00:50
PROVIDERS: ADMIT Obstetrics & Gynecology; ATTEND Obstetrics & Gynecology
PROC: 10E0XZZ Delivery of Products of Conception, External Approach (ICD-10-PCS; principal; 2018-10-26)
PROC: 3E0234Z Introduction of Serum, Toxoid and Vaccine into Muscle, Percutaneous Approach (ICD-10-PCS; 2018-10-26)
DX: O02.1 Missed abortion (principal); O99.322 Drug use complicating pregnancy, second trimester; Z37.1 Single stillbirth; O26.892 Other specified pregnancy related conditions, second trimester; Z3A.16 16 weeks gestation of pregnancy; Z67.91 Unspecified blood type, Rh negative
CPT/HCPCS: 36415; 36430; 59414; 85027; 85460; 86850; 86900; 86901; J2590; J2792

== ENCOUNTER 2018-11-03 19:54 | Emergency (ER) | payer SELFPAY ==
[2018-11-03 20:15] VITALS: BP 128/84
[2018-11-03] MEDS ORDERED: Ketorolac 60 MG/2 ML SDV IM ONE (20:19)
--- NOTE | 2018-11-03 20:23 | EDM.PDOC ---
ED HPI GENERAL MEDICAL PROBLEM - General Chief Complaint: General Stated Complaint: PT HAS FEVER Time Seen by Provider: 11/03/18 20:11 Source of Information: Reports: Patient History Limitations: Reports: No Limitations - History of Present Illness INITIAL COMMENTS - FREE TEXT/NARRATIVE: HISTORY AND PHYSICAL: History of present illness: Patient is a 28-year-old female who presents to the emergency room today with complaints of headache, sore throat, and suprapubic abdominal pain. Patient denies any fever, chills, change in vision, syncope or near syncope. Denies any chest pain, back pain, shortness of breath or cough. Denies any nausea, vomiting , diarrhea, constipation or dysuria. Denies any chance of . Has not noted any blood in urine or stool. Patient has been eating and drinking appropriately. Review of systems: As per history of present illness and below otherwise all systems reviewed and negative. Past medical history: As per history of present illness and as reviewed below otherwise noncontributory. Surgical history: As per history of present illness and as reviewed below otherwise noncontributory. Social history: See social history for further information Family history: As per history of present illness and as reviewed below otherwise noncontributory. Physical exam: General: Well-developed and well-nourished 28-year-old female. Alert and oriented. Nontoxic appearing and in no acute distress. HEENT: Atraumatic, normocephalic, pupils equal and reactive bilaterally, negative for conjunctival pallor or scleral icterus, mucous membranes moist, TMs normal bilaterally, throat clear, neck supple, nontender, trachea midline. No drooling or trismus noted. No meningeal signs. No hot potato voice noted. Lungs: Clear to auscultation, breath sounds equal bilaterally, chest nontender. Heart: S1S2, regular rate and rhythm without overt murmur Abdomen: Soft, nondistended, nontender. Negative for masses or hepatosplenomegaly. Negative for costovertebral tenderness. Pelvis: Stable nontender. Genitourinary: Deferred. Rectal: Deferred. Skin: Intact, warm, dry. No lesions or rashes noted. Extremities: Atraumatic, moves all extremities per self with difficulty or deficits, negative for cords or calf pain. Neurovascular unremarkable. Neuro: Awake, alert, oriented. Cranial nerves II through XII unremarkable. Cerebellum unremarkable. Motor and sensory unremarkable throughout. Exam nonfocal. Notes: Lab work is unremarkable with the exception that she does have what looked like an early start of a UTI. Vital signs are stable. Encouraged patient to do supportive care measures at home along with the oral antibiotic can Zofran as needed. Voices understanding and is agreeable to plan of care. Denies any further questions or concerns at this time. Diagnostics: Strep, CBC, CMP, UA, HCGU Therapeutics: Toradol IM Prescription: Macrobid Zofran Impression: UTI Viral illness Plan: 1. Increase your oral fluids 2. Take your antibiotic as prescribed. Zofran as needed for nausea management. 3. Follow-up with your primary care provider as we discussed. Return to the ED as needed and as discussed. Definitive disposition and diagnosis as appropriate pending reevaluation and review of above. Generalized Pain Score (Numeric/FACES): 8 - Related Data Allergies Allergy/AdvReac Type Severity Reaction Status Date / Time amoxicillin Allergy Cannot Verified 11/03/18 20:15 Remember Penicillins Allergy Cannot Verified 11/03/18 20:15 Remember Home Meds: Home Meds . 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 STOVE INSTALLER History: abscess to right and left breast (december 2017) Musculoskeletal History: Reports: None Neurological History: Reports: None Psychiatric History: Reports: Bipolar Endocrine/Metabolic History: Reports: None Hematologic History: Reports: Anemia Immunologic History: Reports: None Oncologic (Cancer) History: Reports: None Dermatologic History: Reports: Cellulitis - Infectious Disease History Infectious Disease History: Reports: None - Past Surgical History Head Surgeries/Procedures: Reports: None HEENT Surgical History: Reports: None, Tonsillectomy Cardiovascular Surgical History: Reports: None Respiratory Surgical History: Reports: None GI Surgical History: Reports: None Female Surgical History: Reports: None Endocrine Surgical History: Reports: None Neurological Surgical History: Reports: None Musculoskeletal Surgical History: Reports: None Oncologic Surgical History: Reports: None Dermatological Surgical History: Reports: None Social & Family History - Family History Family Medical History: Noncontributory Cardiac: Reports: None Respiratory: Reports: None GI: Reports: None : Reports: None OBGYN: Reports: Musculoskeletal: Reports: None Neurological: Reports: None Psychiatric: Reports: None Endocrine/Metabolic: Reports: None Hematologic: Reports: None Immunologic: Reports: None Dermatologic: Reports: None Oncologic: Reports: None - Tobacco Use Smoking Status *Q: Current Every Day Smoker Years of Tobacco use: 10 Packs/Tins Daily: 0.1 - Caffeine Use Caffeine Use: Reports: Coffee, Soda - Recreational Drug Use Recreational Drug Use: Yes Drug Use in Last 12 Months: Yes Recreational Drug Type: Reports: Marijuana/Hashish Recreational Drug Use Frequency: Socially - Living Situation & Occupation Living situation: Reports: Single Occupation: Employed ED ROS GENERAL - Review of Systems Review Of Systems: ROS reveals no pertinent complaints other than HPI. ED EXAM, GENERAL - Physical Exam Exam: See Below (See dictation) Course - Vital Signs Last Recorded V/S: Last Vital Signs Temp 98.6 F 11/03/18 20:13 Pulse 72 11/03/18 20:13 Resp 18 11/03/18 20:13 BP 128/84 11/03/18 20:13 Pulse Ox 97 11/03/18 20:13 - Orders/Labs/Meds Orders: Active Orders 24 hr Category Date Time Status CULTURE STREP A CONFIRMATION [RM] Stat Lab 11/03/18 20:20 Results STREP SCRN A RAPID W CULT CONF [RM] Stat Lab 11/03/18 20:20 Results Labs: Laboratory Tests 11/03/18 11/03/18 11/03/18 Range/Units 20:20 20:25 20:25 WBC 8.52 (4.0-11.0) K/uL RBC 3.45 L (4.30-5.90) M/uL Hgb 11.2 L (12.0-16.0) g/dL Hct 33.5 L (36.0-46.0) % MCV 97.1 (80.0-98.0) fL MCH 32.5 H (27.0-32.0) pg MCHC 33.4 (31.0-37.0) g/dL RDW Std Deviation 53.1 (28.0-62.0) fl RDW Coeff of Millicent 15 (11.0-15.0) % Plt Count 372 (150-400) K/uL MPV 9.30 (7.40-12.00) fL Neut % (Auto) 76.3 (48.0-80.0) % Lymph % (Auto) 18.2 (16.0-40.0) % [place] % (Auto) 4.6 (0.0-15.0) % Eos % (Auto) 0.8 (0.0-7.0) % Baso % (Auto) 0.1 (0.0-1.5) % Neut # (Auto) 6.5 H (1.4-5.7) K/uL Lymph # (Auto) 1.6 (0.6-2.4) K/uL [place] # (Auto) 0.4 (0.0-0.8) K/uL Eos # (Auto) 0.1 (0.0-0.7) K/uL Baso # (Auto) 0.0 (0.0-0.1) K/uL Nucleated RBC % 0.0 /100WBC Nucleated RBCs # 0 K/uL Sodium (136-145) mmol/L Potassium (3.5-5.1) mmol/L Chloride (98-107) mmol/L Carbon Dioxide (21.0-32.0) mmol/L BUN (7.0-18.0) mg/dL Creatinine (0.6-1.0) mg/dL Est Cr Clr Drug Dosing mL/min Estimated GFR (MDRD) ml/min Glucose (74-106) mg/dL Calcium (8.5-10.1) mg/dL Total Bilirubin (0.2-1.0) mg/dL AST (15-37) IU/L ALT (14-63) IU/L Alkaline Phosphatase (46-116) U/L Total Protein (6.4-8.2) g/dL Albumin (3.4-5.0) g/dL Globulin (2.6-4.0) g/dL Albumin/Globulin Ratio (0.9-1.6) Urine Color YELLOW Urine Appearance SLT CLOUDY Urine pH 6.5 (5.0-8.0) Ur Specific [place] 1.020 (1.001-1.035) Urine Protein TRACE H (NEGATIVE) mg/dL Urine Glucose (UA) NEGATIVE (NEGATIVE) mg/dL Urine Ketones NEGATIVE (NEGATIVE) mg/dL Urine Occult Blood LARGE H (NEGATIVE) Urine Nitrite NEGATIVE (NEGATIVE) Urine Bilirubin SMALL H (NEGATIVE) Urine Ictotest NEGATIVE Urine Urobilinogen 4.0 H (<2.0) EU/dL Ur Leukocyte Esterase NEGATIVE (NEGATIVE) Urine RBC 0-3 (0-2/HPF) Urine WBC 2-4 (0-5/HPF) Ur Epithelial Cells RARE (NONE-FEW) Amorphous Sediment FEW (NEGATIVE) Urine Bacteria FEW (NEGATIVE) Urine Mucus MODERATE (NONE-MOD) Urine HCG, Qual POSITIVE (NEGATIVE) 11/03/18 Range/Units 20:40 WBC (4.0-11.0) K/uL RBC (4.30-5.90) M/uL Hgb (12.0-16.0) g/dL Hct (36.0-46.0) % MCV (80.0-98.0) fL MCH (27.0-32.0) pg MCHC (31.0-37.0) g/dL RDW Std Deviation (28.0-62.0) fl RDW Coeff of Millicent (11.0-15.0) % Plt Count (150-400) K/uL MPV (7.40-12.00) fL Neut % (Auto) (48.0-80.0) % Lymph % (Auto) (16.0-40.0) % [place] % (Auto) (0.0-15.0) % Eos % (Auto) (0.0-7.0) % Baso % (Auto) (0.0-1.5) % Neut # (Auto) (1.4-5.7) K/uL Lymph # (Auto) (0.6-2.4) K/uL [place] # (Auto) (0.0-0.8) K/uL Eos # (Auto) (0.0-0.7) K/uL Baso # (Auto) (0.0-0.1) K/uL Nucleated RBC % /100WBC Nucleated RBCs # K/uL Sodium 141 (136-145) mmol/L Potassium 3.7 (3.5-5.1) mmol/L Chloride 104 (98-107) mmol/L Carbon Dioxide 26.6 (21.0-32.0) mmol/L BUN 10 (7.0-18.0) mg/dL Creatinine 0.7 (0.6-1.0) mg/dL Est Cr Clr Drug Dosing 107.67 mL/min Estimated GFR (MDRD) > 60.0 ml/min Glucose 111 H (74-106) mg/dL Calcium 8.5 (8.5-10.1) mg/dL Total Bilirubin 0.4 (0.2-1.0) mg/dL AST 20 (15-37) IU/L ALT 25 (14-63) IU/L Alkaline Phosphatase 86 (46-116) U/L Total Protein 7.4 (6.4-8.2) g/dL Albumin 3.3 L (3.4-5.0) g/dL Globulin 4.1 H (2.6-4.0) g/dL Albumin/Globulin Ratio 0.8 L (0.9-1.6) Urine Color Urine Appearance Urine pH (5.0-8.0) Ur Specific [place] (1.001-1.035) Urine Protein (NEGATIVE) mg/dL Urine Glucose (UA) (NEGATIVE) mg/dL Urine Ketones (NEGATIVE) mg/dL Urine Occult Blood (NEGATIVE) Urine Nitrite (NEGATIVE) Urine Bilirubin (NEGATIVE) Urine Ictotest Urine Urobilinogen (<2.0) EU/dL Ur Leukocyte Esterase (NEGATIVE) Urine RBC (0-2/HPF) Urine WBC (0-5/HPF) Ur Epithelial Cells (NONE-FEW) Amorphous Sediment (NEGATIVE) Urine Bacteria (NEGATIVE) Urine Mucus (NONE-MOD) Urine HCG, Qual (NEGATIVE) Meds: Medications Discontinued Medications Generic Name Dose Route Start Last Admin Trade Name Freq PRN Reason Stop Dose Admin Ketorolac Tromethamine 60 mg 11/03/18 20:19 11/03/18 20:32 Toradol IM 11/03/18 20:20 60 mg ONETIME ONE Administration Departure - Departure Time of Disposition: 21:16 Disposition: Home, Self-Care 01 Clinical Impression: Viral illness UTI (urinary tract infection) Qualifiers: Urinary tract infection type: site unspecified Hematuria presence: without hematuria Qualified Code(s): N39.0 - Urinary tract infection, site not specified - Discharge Information Referrals: PCP,None [Primary Care Provider] - Forms: ED Department Discharge Additional Instructions: The following information is given to patients seen in the emergency department who are being discharged to home. This information is to outline your options for follow-up care. We provide all patients seen in our emergency department with a follow-up referral. The need for follow-up, as well as the timing and circumstances, are variable depending upon the specifics of your emergency department visit. If you don't have a primary care physician on staff, we will provide you with a referral. We always advise you to contact your personal physician following an emergency department visit to inform them of the circumstance of the visit and for follow-up with them and/or the need for any referrals to a consulting specialist. The emergency department will also refer you to a specialist when appropriate. This referral assures that you have the opportunity for follow-up care with a specialist. All of these measure are taken in an effort to provide you with optimal care, which includes your follow-up. Under all circumstances we always encourage you to contact your private physician who remains a resource for coordinating your care. When calling for follow-up care, please make the office aware that this follow-up is from your recent emergency room visit. If for any reason you are refused follow-up, please contact the [facility] Emergency Department at and asked to speak to the emergency department charge nurse. [facility] [address] [place] [id number] [place] [address] 1. Tylenol and/or ibuprofen as needed for pain management. Increase your oral fluids 2. Take your antibiotic as prescribed. Zofran as needed for nausea management. 3. Follow-up with your primary care provider as we discussed. Return to the ED as needed and as discussed. - My Orders Last 24 Hours: My Active Orders 11/03/18 20:20 CULTURE STREP A CONFIRMATION [] Stat STREP SCRN A RAPID W CULT CONF [] Stat - Assessment/Plan Last 24 Hours: My Active Orders 11/03/18 20:20 CULTURE STREP A CONFIRMATION [RM] Stat STREP SCRN A RAPID W CULT CONF [RM] Stat
[2018-11-03 21:09] LABS: CHLORIDE,CL 104 mmol/L (98-107); SODIUM,NA 141 mmol/L (136-145)
== END 2018-11-03 21:32 | disposition home or self-care (01) ==
LOC: MW.ED 19:54
DX: N39.0 Urinary tract infection, site not specified (principal); B34.9 Viral infection, unspecified; F17.210 Nicotine dependence, cigarettes, uncomplicated; Z88.0 Allergy status to penicillin; Z88.1 Allergy status to other antibiotic agents
CPT/HCPCS: 36415; 80053; 81001; 81025; 85025; 87081; 87880; 96372; 99283; J1885

== ENCOUNTER 2022-03-28 18:04 | Emergency (ER) | payer MEDICAID ==
[2022-03-28] MEDS ORDERED: Alum Hydro/Mag Hydro/Simeth XS 15 ML, Lidocaine 2% 5 ML PO ONE ×2 (18:27)
[2022-03-28] MEDS ORDERED: diphenhydrAMINE 50 MG Cap PO ONE (18:29)
[2022-03-28] MEDS ORDERED: Ketorolac 60 MG/2 ML SDV IM ONE (19:44)
[2022-03-28 20:16] VITALS: BP 135/72; PULSE 52
== END 2022-03-28 20:15 | disposition home or self-care (01) ==
LOC: MW.ED 18:04
DX: R10.10 Upper abdominal pain, unspecified (principal); Z88.0 Allergy status to penicillin
CPT/HCPCS: 96372; 99283; A9270; J1885